=== PATIENT | male | born 1955 | race African-American/Black ===

== ENCOUNTER 2023-07-12 20:54 | Emergency (ER) | payer MEDICARE, SELFPAY ==
[2023-07-12] VITALS (21 sets, daily range): BP systolic 133–159; BP diastolic 75–120; PULSE 84–128; RESP 12–27; TEMP 36.4; O2SAT 95–100
[2023-07-12 21:29] LABS: Basophils Percent Auto 0.4 % (0.2-1.2); Eosinophils Percent Auto 0.1 % (0-4.4); Hematocrit 40.7 % (42.0-52.0); Immature Granulocyte Absolute 0.02 K/mm3 (0.00-0.031); Immature Granulocyte Percent A 0.2 % (0-0.5); Lymphocytes Absolute Auto 1.42 K/mm3 (0.9-3.2); Lymphocytes Percent Auto 15.7 % (18.3-44.2); Mean Corpuscular HGB Conc 34.4 g/dl (32-36); Mean Corpuscular Hemoglobin 31.2 pg (26-34); Mean Corpuscular Volume 90.6 fl (80-100); Mean Platelet Volume 10.3 fl (7.4-10.4); Monocytes Absolute Auto 0.5 K/mm3 (0.1-0.6); Monocytes Percent Auto 5.2 % (2.6-8.5); Neutrophils Absolute Auto 7.1 K/mm3 (1.3-6.7); Neutrophils Percent Auto 78.4 % (45.5-73.1); Platelet Count Result 160 k/mm3 (150-375); Red Blood Count 4.49 M/mm3 (4.6-6.20); Red Cell Distribution Width 13.5 % (11.5-14.5); White Blood Count 9.1 K/mm3 (4.5-10.0)
[2023-07-12 21:49] LABS: Alanine Aminotransferase 34 U/L (6-50); Albumin Level 5.3 g/dL (3.5-5.1); Alkaline Phosphatase 73 U/L (38-126); Anion Gap 20 mmol/L (4-12); Aspartate Amino Transferase 65 U/L (17-59); Bilirubin,Total 0.9 mg/dL (0.2-1.3); Blood Urea Nitrogen 5 mg/dL (9-20); Calcium 9.2 mg/dL (8.4-10.2); Carbon Dioxide 21 mmol/L (22-30); Chloride 99 mmol/L (98-107); Estimated CRCL calculation 75 ml/min; Estimated Glomerular Filt Rate > 60; Glucose 172 mg/dL (65-110); Lipase 110 U/L (23-300); Potassium 3.7 mmol/L (3.4-5.0); Sodium 140 mmol/L (137-145)
[2023-07-12] MEDS: SODIUM CHLORIDE 0.9% IV 1,000 ML 999 ML IV CONT (22:11)
[2023-07-12] MEDS: PANTOPRAZOLE SODIUM IV 40 MG VIAL IV PUSH (22:11)
--- NOTE | 2023-07-12 22:16 | ECG_ITS ---
SEE SCANNED COPY FOR CONFIRMED REPORT MTDD
--- NOTE | 2023-07-12 22:21 | ED.ABDPAIN ---
HPI - Abdominal Pain General Chief Complaint: Abdominal Pain Stated Complaint: epigastric pain Time Seen by Provider: 07/12/23 21:52 Source: patient Mode of arrival: ambulatory Limitations: no limitations History of Present Illness HPI narrative: This is a 67 year old male that presents to the ER for burning chest pain. Reports ongoing since yesterday. Reports he is an alcoholic. He started to experience burning pain the radiates from his throat into his chest and abdomen. Associated with nausea and vomiting. Denies fever, shortness of breath, hematemesis, or melena. Related Data Allergies Allergy/AdvReac Type Severity Reaction Status Date / Time No Known Allergies Allergy Unverified 07/12/23 21:14 Review of Systems Review of Systems: CONSTITUTIONAL: Denies fever CARDIOVASCULAR: Reports chest pain RESPIRATORY: Denies dyspnea. GASTROINTESTINAL: Reports abdominal pain, nausea, vomiting All systems reviewed & are unremarkable except as noted in HPI and below PMFSH Past Medical History Medical History (Updated 07/13/23 @ 02:30 by Inga Pineda PA-C) History of gastroesophageal reflux (GERD) History of hypertension Family History Family History (Updated 10/01/15 @ 23:19 by DOCTOR UNKNOWN) Father Family history of diabetes mellitus in first degree relative Sibling Family history of diabetes mellitus in first degree relative Social History Social History Smoking status: Never smoker Second hand tobacco smoke exposure: No Alcohol intake: current Exam Narrative: GENERAL: Well-appearing, well-nourished, and in no acute distress. HEAD: Normocephalic, atraumatic. ENT: Nares clear, no rhinorrhea or epistaxis. Mucous membranes moist. Oropharynx without tonsillar hypertrophy exudate or other lesions. CHEST: Clear to auscultation. No respiratory distress. No wheezes rales or rhonchi HEART: Regular rate and rhythm. No murmur heard. Normal peripheral pulses. ABDOMEN: Soft, nontender, nondistended, normal active bowel sounds. EXTREMITIES: Normal range of motion. No edema. SKIN: Warm, dry, no rash. NEURO: No focal deficits. Alert and oriented x3. PSYCH: Normal mood and affect Course Course Emergency Course: Patient updated on his workup. Resting comfortably. Agrees with plan of care Vital Signs Vital signs: Vital Signs Temperature 97.6 F 07/12/23 21:05 Pulse Rate 128 H 05/09/24 21:05 Respiratory Rate 20 07/12/23 21:05 Blood Pressure 150/101 H 07/12/23 21:05 Pulse Oximetry 97 07/12/23 21:05 Oxygen Delivery Room Air 07/12/23 21:05 Temperature 97.6 F 07/12/23 21:05 Pulse Rate 88 07/12/23 23:49 Respiratory Rate 23 H 07/12/23 23:49 Blood Pressure 133/75 07/12/23 23:49 Pulse Oximetry 99 07/12/23 23:49 Oxygen Delivery Room Air 07/12/23 21:05 MDM - Abdominal Pain MDM Narrative Medical decision making narrative: Patient presents the emergency department for burning epigastric/chest pain. He is afebrile and nontoxic appearing. Tachycardic upon arrival, this normalized with IV fluids. CBC without leukocytosis. Metabolic panel with some evidence of dehydration. Patient hydrated with IV fluids in the ED. Repeat metabolic panel is improved. UA with 11-20 white blood cells, patient is not having any urinary symptoms. This will be sent for culture. Patient reports relief with Protonix and Zofran. Tolerating p.o., no further vomiting in the ED. Patient was updated on his workup and agrees with plan of care. Will be started on Protonix daily. Given resource is to abstain from alcohol. He was given warnings to return to the ER Differential Diagnosis Differential diagnosis: Likely gastroenteritis and other (esophagitis, gastritis, GERD) Lab Data Attestation: I reviewed the patient's lab results. 07/12/23 21:24 07/13/23 02:38 Labs: Lab Results 07/12/23 07/12/23 07/13/23 Range/Units 21:24 23:23 02:38 WBC 9.1 (4.5-10.
[2023-07-12] MEDS: ONDANSETRON INJ 4 MG/2 ML VIAL IV PUSH (22:30)
[2023-07-12 22:51] LABS: Troponin I < 0.012 ng/mL (0.000-0.034)
[2023-07-12 23:35] LABS: Appearance Urine Clear (Clear); Bacteria Urine None Seen /hpf; Bilirubin Urine Negative (Negative); Blood Urine Negative (Negative); Color Urine Yellow (Yellow); Glucose Urine UA Negative (Negative); Ketones Urine 1+ mg/dL (Negative); Leukocyte Esterase Ur Trace LEU/UL (Negative); Nitrate Urine Negative (Negative); Non Pathogenic Casts 0-2; Protein Urine 2+ mg/dL (Negative); RBC Urine 0-2 /hpf (0-2); Specific Grav Ur 1.022 (1.001-1.035); Squamous Epithelial Cell Urine Occasional /hpf (Few); pH Urine 6.5 (5.0-9.0)
[2023-07-12 23:42] LABS: Add Urine Microscopic? YES
[2023-07-13] VITALS: PULSE 86; RESP 19; O2SAT 98
[2023-07-13 00:15] VITALS: PULSE 91; RESP 20; O2SAT 100
[2023-07-13 00:31] VITALS: O2SAT 96
[2023-07-13] MEDS: SODIUM CHLORIDE 0.9% IV 1,000 ML 999 ML IV CONT (00:50)
[2023-07-13 02:52] LABS: Anion Gap 13 mmol/L (4-12); Blood Urea Nitrogen 3 mg/dL (9-20); Calcium 7.8 mg/dL (8.4-10.2); Carbon Dioxide 21 mmol/L (22-30); Chloride 106 mmol/L (98-107); Estimated CRCL calculation 86 ml/min; Estimated Glomerular Filt Rate > 60; Glucose 105 mg/dL (65-110); Potassium 3.7 mmol/L (3.4-5.0); Sodium 140 mmol/L (137-145)
[2023-07-13 03:05] VITALS: BP 186/68; PULSE 86; RESP 16; O2SAT 98
== END 2023-07-13 03:05 | disposition home or self-care (01) ==
PROVIDERS: Emergency Medicine; Emergency Provider Physician Assistant
DX: K29.70 Gastritis, unspecified, without bleeding (principal); F10.10 Alcohol abuse, uncomplicated; R82.998 Other abnormal findings in urine; I10 Essential (primary) hypertension; K21.9 Gastro-esophageal reflux disease without esophagitis
CPT/HCPCS: 36415; 80048; 80053; 81001; 83690; 84484; 85025; 87086; 93005; 96361; 96374; 96375; 99284; C9113; J2405; J7030

== ENCOUNTER 2023-07-13 06:38 | Inpatient (IN) | payer MEDICARE, MEDICAID, SELFPAY ==
[2023-07-13] VITALS (25 sets, daily range): BP systolic 124–160; BP diastolic 64–88; PULSE 63–127; RESP 14–24; TEMP 36.3–36.6; O2SAT 95–99; BMI 20.9
--- NOTE | ~2023-07-13 | MR_ITS ---
EXAMINATION: MR brain/brain stem wo con DATE: 07/14/2023 14:09 INDICATION: seizure TECHNIQUE: Magnetic resonance imaging (MRI) of the brain and brainstem was performed without intraven ous contrast. Sequences included sagittal and axial T1-weighted SE, axial diffusion-weighted FS EPI A SSET, axial T2*-weighted GRE, axial T2-weighted FLAIR Propeller, and axial T2-weighted Propeller. Pos tcontrast axial and coronal T1-weighted SE was obtained. Apparent diffusion coefficient (ADC) maps we re created. COMPARISON: CT brain 07/13/2023 FINDINGS: No abnormal restricted diffusion to suggest acute ischemic infarct. No MRI evidence of hemorrhage or extra-axial collection. No suspicious foci of susceptibility to suggest prior intraparenchymal hemorr karmen. Severe confluent or patchy and confluent white matter hyperintensity, likely representing sever e small vessel ischemic disease. Mild generalized parenchymal volume loss. The basilar cisterns are p atent. Flow voids are preserved. Paranasal sinuses are within normal limits. Left phthisis bulbi. Yanna bes and orbital contents are otherwise within normal limits. IMPRESSION: Severe chronic white matter changes. No acute intracranial process. Reviewed, dictated and finalized at location K.
--- NOTE | ~2023-07-13 | CT_ITS ---
CT head without contrast Indication: Seizure Technique: Serial scans were obtained through the brain without the administration of contrast. Dose reduction technique was used on this scan by utilizing automated exposure control and iterative recon struction technique. The dose-length product (DLP) was 605.33 mGy-cm. Findings: There is no evidence of intracranial hemorrhage, mass lesion, or acute infarct. The ventri cles and subarachnoid spaces are dilated, consistent with mild atrophy. Low attenuation regions are seen within the periventricular white matter bilaterally, likely representing changes from chronic mi crovascular ischemic disease. There is no evidence of edema, mass effect or midline shift. The visu alized paranasal sinuses and mastoid air cells are clear. Impression: No intracranial hemorrhage, mass, or acute infarct. Atrophy and chronic white matter changes, as above. Reviewed, dictated and finalized at location . Impression: No intracranial hemorrhage, mass, or acute infarct. Atrophy and chronic white matter changes, as above.
--- NOTE | 2023-07-13 06:44 | PC.NURSE ---
This RN called to waiting room by a visitor stating something is wrong with that man patient found on the floor in front of his wheelchair having seizure like activity. Patient was lifted to stretcher by staff members and security. no injury noted. Patient was incont. of urine
--- NOTE | 2023-07-13 06:45 | ECG_ITS ---
SEE SCANNED COPY FOR CONFIRMED REPORT MTDD
[2023-07-13] MEDS: LORazepam INJ (*CRX) 2 MG/ML VIAL IV PUSH ×2 (06:48→10:32)
[2023-07-13 07:00] LABS: Basophils Absolute Auto 0.1 K/mm3 (0.0-0.1); Basophils Percent Auto 0.3 % (0.2-1.2); Hematocrit 41.4 % (42.0-52.0); Immature Granulocyte Absolute 0.07 K/mm3 (0.00-0.031); Immature Granulocyte Percent A 0.4 % (0-0.5); Lymphocytes Absolute Auto 1.68 K/mm3 (0.9-3.2); Lymphocytes Percent Auto 9.8 % (18.3-44.2); Mean Corpuscular HGB Conc 31.4 g/dl (32-36); Mean Corpuscular Hemoglobin 30.9 pg (26-34); Mean Corpuscular Volume 98.3 fl (80-100); Mean Platelet Volume 10.6 fl (7.4-10.4); Monocytes Absolute Auto 1.2 K/mm3 (0.1-0.6); Monocytes Percent Auto 7.1 % (2.6-8.5); Neutrophils Absolute Auto 14.1 K/mm3 (1.3-6.7); Neutrophils Percent Auto 82.4 % (45.5-73.1); Platelet Count Result 147 k/mm3 (150-375); Red Blood Count 4.21 M/mm3 (4.6-6.20); Red Cell Distribution Width 13.9 % (11.5-14.5); White Blood Count 17.1 K/mm3 (4.5-10.0)
[2023-07-13] MEDS: [UNRECOGNIZED DRUG - OTHER] IVPB (07:03)
[2023-07-13] MEDS: LEVETIRACETAM IVPB (07:03)
[2023-07-13 07:09] LABS: Ethanol < 10 mg/dL (<10)
[2023-07-13 07:10] LABS: Alanine Aminotransferase 70 U/L (6-50); Albumin Level 5.5 g/dL (3.5-5.1); Alkaline Phosphatase 76 U/L (38-126); Anion Gap 32 mmol/L (4-12); Aspartate Amino Transferase 86 U/L (17-59); Bilirubin,Total 1.3 mg/dL (0.2-1.3); Blood Urea Nitrogen 4 mg/dL (9-20); Calcium 9.5 mg/dL (8.4-10.2); Carbon Dioxide 10 mmol/L (22-30); Chloride 108 mmol/L (98-107); Estimated CRCL calculation 54 ml/min; Estimated Glomerular Filt Rate > 60; Glucose 201 mg/dL (65-110); Potassium 3.9 mmol/L (3.4-5.0); Sodium 150 mmol/L (137-145)
[2023-07-13 07:23] LABS: Lactic Acid Reflex 22.9 mmol/L (0.7-2.0)
[2023-07-13] MEDS: LACTATED RINGERS 1,000 ML 999 ML IV CONT (08:36)
--- NOTE | 2023-07-13 08:43 | ED.SEIZURE ---
HPI - Seizure General Chief Complaint: Seizure Stated Complaint: seizure Time Seen by Provider: 07/13/23 06:57 Limitations: altered mental status History of Present Illness HPI Narrative: HPI limited by patient's altered mental status This is a 67-year-old male, with history of alcohol abuse, previously seen in this emergency room yesterday evening for atypical chest pain, who returns to the emergency department after having a seizure. The patient was waiting in our waiting room for his ride, when he had a seizure. Patient was given 2 mg IV Ativan shortly after cessation of his seizure. Related Data Allergies Allergy/AdvReac Type Severity Reaction Status Date / Time No Known Allergies Allergy Unverified 07/12/23 21:14 Review of Systems Review of Systems: ROS unobtainable: Yes unobtainable due to mental status PMFSH Past Medical History Medical History Above knee amputation of right lower extremity History of gastroesophageal reflux (GERD) History of hypertension Family History Family History Father Family history of diabetes mellitus in first degree relative Sibling Family history of diabetes mellitus in first degree relative Social History Social History Smoking status: Never smoker Second hand tobacco smoke exposure: No Alcohol intake: current Drinks per week: 84 Substance use: unknown Substance use type: unknown Do You Feel Safe in your Home?: Yes Lack of Transportation: No Lack of Food: Never True Current Housing: Decline to Answer Concerned About Future Housing: Decline to Answer Difficulty Paying Gas/Electric Bills: Decline to Answer Difficulty Paying for Meds: Decline to Answer Currently Unemployed: Decline to Answer Education: Decline to Answer Difficulty w/ Childcare or Family Care: Decline to Answer Spiritual care concerns: No Exam Narrative: GENERAL: Well-developed, well-nourished, and in no acute distress. HEAD: Normocephalic, atraumatic. EYES: PERRLA and EOMI. Right pupil 3 mm and sluggishly reactive to light. Left cornea clouded ENT: Nares clear, no rhinorrhea or epistaxis. Mucous membranes moist. Oropharynx without tonsillar hypertrophy exudate or other lesions. CHEST: Clear to auscultation. No respiratory distress. No wheezes rales or rhonchi HEART: Tachycardic with regular rhythm. No murmur heard. Normal peripheral pulses. ABDOMEN: Soft, nontender, nondistended, normal active bowel sounds. EXTREMITIES: Normal range of motion. No edema. SKIN: Warm, dry, no rash. NEURO: Drowsy though wakes to tactile stimulus. Moving all 4 limbs spontaneously Course Course Emergency Course: 08:40 - On re-evaluation, the patient is now more easily arousable. He is oriented x3. He states he has had seizures related to alcohol withdrawal previously. He states he typically drinks around a 12 pack a day with his last drink yesterday evening. Chemistries demonstrated sodium of 150 with anion gap of 32, likely related to lactic acidosis of 22 (consistent with seizure). AST/ALT of 86/70. CT head not concerning for acute intracranial process. CBC demonstrated elevated white blood cell count of 17.1 with anemia and hemoglobin of 13.0 oral. Platelets 147. Alcohol level 0. CIWA of 4. I suspect the patient's seizures related to alcohol withdrawal. Will give phenobarb and discussed with hospitalist for admission. The patient is comfortable with the plan. 08:50 - Repeat lactic acid improving to 7. 09:30 - I discussed this patient with hospitalist, Dr. Pelaez who accepts admission IMU. 09:44 - I discussed the patient with neurologist, Dr. Diaz who agrees to consult and recommends MRI of the brain. Vital Signs Vital signs: Vital Signs Temperature 98 F 07/13/23 06:39 Pulse Rate 127 H 07/13/23 06:39 Respiratory Rate 18
[2023-07-13] MEDS: PHENobarbitaL sodium (*CRX) 65 MG/ML VIAL 130 MG IV PUSH (09:07)
[2023-07-13 09:56] LABS: Reflex Lactic Acid Yes or No Add Lactic
[2023-07-13 10:24] LABS: Lactic Acid 3.1 mmol/L (0.7-2.0)
--- NOTE | 2023-07-13 15:06 | WPDNEUROPN ---
Subjective Date/time seen: 07/13/23 15:06 Objective Data Vital Signs Vital Signs: Vital Signs - 24 hr 07/13/23 06:39 07/13/23 06:49 07/13/23 06:49 Temperature 36.6 C Pulse Rate 127 H 125 H Respiratory Rate 18 Blood Pressure 160/78 H Pulse Oximetry 97 95 Oxygen Delivery Room Air 07/13/23 06:49 07/13/23 06:51 07/13/23 07:19 Temperature Pulse Rate 123 H 116 H Respiratory Rate 20 19 Blood Pressure 150/80 H Pulse Oximetry 95 95 96 Oxygen Delivery Room Air 07/13/23 07:21 07/13/23 07:30 07/13/23 07:31 Temperature Pulse Rate 114 H 116 H 112 H Respiratory Rate 20 20 18 Blood Pressure 143/86 H 149/88 H Pulse Oximetry 96 95 96 Oxygen Delivery 07/13/23 07:45 07/13/23 07:46 07/13/23 08:01 Temperature Pulse Rate 119 H 108 H Respiratory Rate 18 17 Blood Pressure 141/81 H 143/87 H Pulse Oximetry Oxygen Delivery 07/13/23 08:02 07/13/23 08:17 07/13/23 08:30 Temperature Pulse Rate 106 H 100 97 Respiratory Rate 24 H 16 14 Blood Pressure 135/84 Pulse Oximetry 97 98 Oxygen Delivery 07/13/23 08:45 07/13/23 10:25 07/13/23 10:31 Temperature Pulse Rate 94 89 89 Respiratory Rate 15 20 19 Blood Pressure 148/86 H Pulse Oximetry 97 Oxygen Delivery 07/13/23 11:47 07/13/23 14:02 07/13/23 14:56 Temperature Pulse Rate 83 81 80 Respiratory Rate 14 18 16 Blood Pressure 129/73 124/64 125/72 Pulse Oximetry 98 96 97 Oxygen Delivery 07/13/23 15:01 Temperature Pulse Rate 80 Respiratory Rate 19 Blood Pressure 130/74 Pulse Oximetry 96 Oxygen Delivery Intake/Output Intake/Output: Intake & Output 07/10/23 07/11/23 07/12/23 07/13/23 23:59 23:59 23:59 23:59 Intake Total 1200 Balance 1200 Meds/Results Medications: Active Medications Generic Name Dose Route Start Last Admin Trade Name Freq PRN Reason Stop Dose Admin Lorazepam 2 mg 07/13/23 09:31 05/10/24 10:32 Lorazepam Inj (*Crx) 2 Mg/Ml Vial IV PUSH 2 mg Q2H PRN Administration CIWA > 15 Ondansetron HCl 4 mg 07/13/23 09:31 Ondansetron Inj 4 Mg/2 Ml Vial IV PUSH Q6H PRN Nausea And Vomiting Radiology Results: ITS Impressions Head CT 07/13/23 07:26 Impression: No intracranial hemorrhage, mass, or acute infarct. Atrophy and chronic white matter changes, as above. Labs Labs: Laboratory Results - last 24 hr 07/13/23 07/13/23 07/13/23 06:53 08:32 10:06 WBC 17.1 H RBC 4.21 L Hgb 13.0 L Hct 41.4 L MCV 98.3 D MCH 30.9 MCHC 31.4 L RDW 13.9 Plt Count 147 L MPV 10.6 H Immature Gran % (Auto) 0.4 Neut % (Auto) 82.4 H Lymph % (Auto) 9.8 L Calvert % (Auto) 7.1 Eos % (Auto) 0.0 Baso % (Auto) 0.3 Lymph # (Auto) 1.68 Calvert # (Auto) 1.2 H Eos # (Auto) 0.0 Baso # (Auto) 0.1 Abs Immat Gran (auto) 0.07 H Absolute Neuts (auto) 14.1 H Absolute Nucleated RBC 0.000 Nucleated RBC % 0.0 Sodium 150 H Potassium 3.9 Chloride 108 H Carbon Dioxide 10 L Anion Gap 32 H BUN 4 L Creatinine 1.00 Estim Creat Clear Calc 54 Estimated GFR > 60 Glucose 201 H Lactic Acid 22.9 H* 7.0 H* 3.1 H Calcium 9.5 Total Bilirubin 1.3 AST 86 H ALT 70 H Alkaline Phosphatase 76 Total Protein 9.0 H Albumin 5.5 H Ethyl Alcohol < 10
--- NOTE | 2023-07-13 15:19 | ADMGEN ---
This patient, Dejon Henry, was admitted to IMU Room 203-01 at 1519. Patient/family oriented to hospital policies and general routines including ID bracelet, bed and alarms, visiting hours, pain management, procedures, bathroom and other care routines, personal items, smoking policy, room service/diet, and visiting hours. Information on how to activate the Rapid Response Team has been discussed. Patient/Family are encouraged to report perceived risks to care and to ask questions if they do not understand what they are told or what they should do.
[2023-07-13 17:54] LABS: Glucose Point of Care 91 mg/dl (65-105)
--- NOTE | 2023-07-13 18:02 | WPDNEURCNPN ---
Assessment and Plan Assessment and plan (1) Alcohol abuse: Code(s): F10.10 - Alcohol abuse, uncomplicated Status: Acute (2) Seizure: Code(s): R56.9 - Unspecified convulsions Status: Acute Plan Mr. Henry is a 67 year old male with a history of alcoholism presenting due to seizure. Unclear if this occurred in the setting of alcohol withdrawal. In the ER he told the staff that he drinks daily, and his last drink was yesterday. However he tells me that his last alcoholic beverage was 6 months ago, which would not be indicative of alcohol withdrawal seizure. There is also some discrepancy in whether he has had a prior seizure or not. Patient was not able to sat definitively, but ER note he told them that he has had alcohol withdrawal seizures in the past. - Will proceed with seizure-work up including MRI brain. Routine EEG will have to be done on Sunday if he is still admitted - [facility] protocol - Will need more collateral information from family regarding his drinking habits and possible prior seizure - Patient told me that he does drive? Given this seizure, I did tell him that he cannot drive until at least six months of seizure freedom - Decision for anti-seizure medication will depend on testing results and additional patient history Consult date: 07/13/23 Reason for consult: Seizure HPI: Dejon Henry is a 67 year old male with a history of HTN, chronic alcohol abuse presenting due to seizure. Patient was in the [facility] ED last night for chest/epigastric pain, which was ultimately thought to be related to reflux. He was discharged from the ER after negative work-up and while waiting for a ride, he had a seizure. Description of seizure is unclear, was not witnessed by the ER physician. He received Ativan after the seizure stopped on it's own. Per ER note, patient has had seizures related to alcohol withdrawal previously, however there is no documentation of this in our system, and patient is not able to confirm to me. He tells me he has had previous 'black out spells' related to his vision, but could not definitely tell me if he's had seizures. He has RLE AKA and L eye blindness. He told me that he is able to drive. He told me that his last alcoholic beverage for 6 months ago. However, the ER note says that he drinks about a 12 pack of beer per day, and his last drink was yesterday evening. His labs were significant for lactic acidosis of 22 as well as elevated liver enzymes. CT head was negative for acute process. Alcohol level was negative. No UDS available currently. Patient reports that he lives a lone. Review of Systems Review of Systems: ROS unobtainable: Yes unobtainable due to mental status PMFSH Past Medical History Medical History Above knee amputation of right lower extremity History of gastroesophageal reflux (GERD) History of hypertension Family History Family History Father Family history of diabetes mellitus in first degree relative Sibling Family history of diabetes mellitus in first degree relative Social History Social History Smoking status: Never smoker Second hand tobacco smoke exposure: No Alcohol intake: current Drinks per week: 84 Substance use: unknown Substance use type: unknown Do You Feel Safe in your Home?: Yes Lack of Transportation: No Lack of Food: Never True Current Housing: Decline to Answer Concerned About Future Housing: Decline to Answer Difficulty Paying Gas/Electric Bills: Decline to Answer Difficulty Paying for Meds: Decline to Answer Currently Unemployed: Decline to Answer Education: Decline to Answer Difficulty w/ Childcare or Family Care: Decline to Answer Spiritual care concerns: No Meds Home Medications and Allergies Allergies Allergy/AdvReac Type Severity Reactio
[2023-07-13 21:04] LABS: Amphetamine Screen Urine Negative (Negative); Barbiturate Screen Urine Negative (Negative); Benzodiazepines Screen Urine Negative (Negative); Cannabinoid Screen Urine Negative (Negative); Cocaine Screen Urine Negative (Negative); Methadone Screen Urine Negative (Negative); Opiate Screen Urine Negative (Negative); Phencyclidine Screen Urine Negative (Negative)
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
[2023-07-13 22:14] LABS: Alanine Aminotransferase 37 U/L (6-50); Albumin Level 4.5 g/dL (3.5-5.1); Alkaline Phosphatase 58 U/L (38-126); Anion Gap 10 mmol/L (4-12); Aspartate Amino Transferase 95 U/L (17-59); Bilirubin,Total 1.8 mg/dL (0.2-1.3); Blood Urea Nitrogen 5 mg/dL (9-20); Calcium 8.4 mg/dL (8.4-10.2); Carbon Dioxide 23 mmol/L (22-30); Chloride 102 mmol/L (98-107); Estimated CRCL calculation 61 ml/min; Estimated Glomerular Filt Rate > 60; Glucose 81 mg/dL (65-110); Potassium 3.6 mmol/L (3.4-5.0); Sodium 135 mmol/L (137-145)
[2023-07-13 22:18] LABS: Creatine Kinase 1084 U/L (55-170)
[2023-07-14] VITALS (17 sets, daily range): BP systolic 123–156; BP diastolic 55–78; PULSE 55–88; RESP 16–18; TEMP 35.8–36.9; O2SAT 95–100
[2023-07-14 00:32] LABS: Glucose Point of Care 73 mg/dl (65-105)
[2023-07-14 03:42] LABS: Total Protein Urine Random 56 mg/dL; Ur Ttl Prot Creatinine Ratio 0.29 mg/mg (0-0.20)
[2023-07-14 04:00] LABS: Sodium Urine Random 166 meq/L
[2023-07-14 04:42] LABS: Basophils Percent Auto 0.5 % (0.2-1.2); Eosinophils Percent Auto 0.5 % (0-4.4); Hematocrit 35.9 % (42.0-52.0); Hemoglobin 11.6 g/dL (14.0-18.0); Immature Granulocyte Absolute 0.02 K/mm3 (0.00-0.031); Immature Granulocyte Percent A 0.2 % (0-0.5); Immature Platelet Fraction Pct 8.2 % (0.9-11.2); Lymphocytes Absolute Auto 1.26 K/mm3 (0.9-3.2); Lymphocytes Percent Auto 15.7 % (18.3-44.2); Mean Corpuscular HGB Conc 32.3 g/dl (32-36); Mean Corpuscular Hemoglobin 30.6 pg (26-34); Mean Corpuscular Volume 94.7 fl (80-100); Mean Platelet Volume 10.7 fl (7.4-10.4); Monocytes Absolute Auto 0.6 K/mm3 (0.1-0.6); Monocytes Percent Auto 7.9 % (2.6-8.5); Neutrophils Percent Auto 75.2 % (45.5-73.1); Platelet Count Result 109 k/mm3 (150-375); Red Blood Count 3.79 M/mm3 (4.6-6.20); Red Cell Distribution Width 13.3 % (11.5-14.5)
[2023-07-14 04:57] LABS: Alanine Aminotransferase 34 U/L (6-50); Albumin Level 4.3 g/dL (3.5-5.1); Alkaline Phosphatase 60 U/L (38-126); Anion Gap 12 mmol/L (4-12); Aspartate Amino Transferase 80 U/L (17-59); Bilirubin,Total 1.9 mg/dL (0.2-1.3); Blood Urea Nitrogen 6 mg/dL (9-20); Calcium 8.2 mg/dL (8.4-10.2); Carbon Dioxide 20 mmol/L (22-30); Chloride 102 mmol/L (98-107); Estimated CRCL calculation 61 ml/min; Estimated Glomerular Filt Rate > 60; Glucose 73 mg/dL (65-110); Potassium 3.2 mmol/L (3.4-5.0); Sodium 134 mmol/L (137-145)
[2023-07-14] MEDS: PANTOPRAZOLE SODIUM IV 40 MG VIAL IV PUSH (09:24)
[2023-07-14 11:43] LABS: Glucose Point of Care 122 mg/dl (65-105)
--- NOTE | 2023-07-14 13:38 | PC.NURSE ---
Off floor to MRI
--- NOTE | 2023-07-14 14:10 | PC.NURSE ---
Back from MRI without issue.
--- NOTE | 2023-07-14 15:46 | PC.NURSE ---
Patient out of bed again. Bed alarm activated. Reviewed fall precautions again with patient. Patient alert and oriented x 4. No neurological deficits noted.
--- NOTE | 2023-07-14 16:31 | PM.IMPN ---
Progress Note: A&P Assessment and Plan (1) Seizure: Code(s): R56.9 - Unspecified convulsions Status: Acute Assessment and Plan: 07/13/23: - CT head: 1. No intracranial hemorrhage, mass, or acute infarct. 2. Atrophy and chronic white matter changes, as above. - Neuro consulted, Joe VYAS provided the following recommendations: MRI EEG [employer] protocol obtain collateral information from family to clarify history/ETOH habits educated that he cannot drive until he is seizure-free for 6 months -epileptic medications dependent on further workup and collateral information from family - seizure precautions - CIWA assessments and protocol - trend labs, repeating CMP this evening - WBC 17.1, 9.1 late last night. likely reactive to seizure. 07/14/23: Neurology following MRI results pending Continue CIWA and seizure precautions Plan for EGD on Sunday if he still inpatient otherwise can follow-up outpatient for EEG Continue lorazepam per CIWA for seizure prevention (2) Alcohol abuse: Code(s): F10.10 - Alcohol abuse, uncomplicated Status: Acute Assessment and Plan: 07/13/23: - daily ETOH use: 12 pack of beer daily - last drink: 07/05, approximately 1 week ago - CIWA protocol in place Ativan PRN seizure precautions neurochecks Q2H glucose Q6H - care coordination consulted for acute rehab services - antiemetics PRN - readiness to quit: Yes - the patient is denying history of withdrawal seizures, however has gone through withdrawal but experience nausea, vomiting, diaphoresis, and tremors. Awaiting collateral from family. 07/14/23: Continue CIWA protocol Patient has tremors (3) Hypernatremia: Code(s): E87.0 - Hyperosmolality and hypernatremia Status: Acute Assessment and Plan: 07/13/23: - Na 140 x2 during chest pain workup, repeat after seizure 150 -> 135 - urine osmolality, serum osmolality, protein to creatinine ratio, urine creatinine, urine sodium - trend renal function and electrolytes 07/14/23: Sodium 134 Patient had 1 lab value that was 150, otherwise low to normal (4) HTN (hypertension): Code(s): I10 - Essential (primary) hypertension Status: Acute Assessment and Plan: 07/13/23 - chronic, currently 135/74 - not currently on medications, reviewed external med rec - monitor 07/14/23: Blood pressures ranging 123/55 to 146/76 Continue to monitor (5) GERD (gastroesophageal reflux disease): Code(s): K21.9 - Gastro-esophageal reflux disease without esophagitis Status: Acute Assessment and Plan: 07/14/23: Continue Protonix b.i.d. Time Spent With Patient Time with patient: 25 - 35 minutes Subjective Date/time seen: 07/14/23 16:31 Interval history: 07/13/23: 67 y/o M presents here with seizure with PMH of alcoholism, right AKA, GERD, and HTN. Patient was seen last night in the emergency department for burning chest pain that had been ongoing since yesterday.? Described the pain as burning with radiation to his throat into his chest and abdomen.? Pain accompanied by nausea and vomiting.? Patient was initially tachycardic, normalized with IV fluids.? Lab work showed no anemia, no leukocytosis, with some evidence of dehydration.? UA sent for culture given presence of wbc's.? Patient reported improvement with Protonix and Zofran and was discharged with resources for abstaining from alcohol as well as a prescription for Protonix daily.? While patient was waiting for a ride to come pick him up he had a seizure while in the waiting room.? Seizure self aborted, was given 2 mg of Ativan, and initially postictal.? Later reassessment patient was A&O x3 and reported previous history of seizures related to alcohol withdrawal.? States that he drinks a 12 pack of beer per day.? Last drink was yesterday, 07/11, at XX o'clock.? Patient admitted for possible alcohol withdrawal and seizure workup.? Per chart review, neuro discussed
[2023-07-14 18:12] LABS: Glucose Point of Care 149 mg/dl (65-105)
--- NOTE | 2023-07-14 20:54 | PC.NURSE ---
07/14/23 at 2024-Bed alarm alarming and this RN went to assess. [employer] employee and another RN also in Pt's room upon my arrival. Pt found out of bed, sitting on the floor. Pt states that he did not fall out of bed and he wanted to lower himself onto the floor so the alarm would not go off again. Pt reports that he did not hit his head and no visible injuries noted. Pt assisted x2 back to the bed. Pt remains angry, restless, and combative. Trying to pull off gown and heart monitor. Pt stating that he wants to go back to his home and get out of this bed. Pt is refusing to answer orientation questions at this time. Pt instructed/re-educated again that he remains on bedrest with seizure precautions and has orders to remain in the bed. Pt is refusing education. Charge nurse, Ashlyn Vergara, Bottle And Glass Inspector, Yasmin Jimenez, WON, and Estelita Herrera, ALAYNA notified of Pt's fall, current mental status, and agitation. No orders received at this time. Alfreda MOORE pulled to sit in Pt's room.
[2023-07-14] MEDS: PANTOPRAZOLE 40 MG TABLET PO (21:08)
[2023-07-15] VITALS (15 sets, daily range): BP systolic 136–159; BP diastolic 78–99; PULSE 60–105; RESP 18–21; TEMP 36.2–36.7; O2SAT 98–100
[2023-07-15 00:17] LABS: Glucose Point of Care 132 mg/dl (65-105)
[2023-07-15 06:06] LABS: Glucose Point of Care 119 mg/dl (65-105)
[2023-07-15 08:38] LABS: Hematocrit 39.4 % (42.0-52.0); Hemoglobin 13.2 g/dL (14.0-18.0); Immature Platelet Fraction Pct 9.2 % (0.9-11.2); Mean Corpuscular HGB Conc 33.5 g/dl (32-36); Mean Corpuscular Hemoglobin 31.1 pg (26-34); Mean Corpuscular Volume 92.7 fl (80-100); Mean Platelet Volume 11.4 fl (7.4-10.4); Platelet Count Result 104 k/mm3 (150-375); Red Blood Count 4.25 M/mm3 (4.6-6.20); White Blood Count 6.7 K/mm3 (4.5-10.0)
[2023-07-15 08:45] LABS: Alanine Aminotransferase 34 U/L (6-50); Albumin Level 4.8 g/dL (3.5-5.1); Alkaline Phosphatase 68 U/L (38-126); Anion Gap 11 mmol/L (4-12); Aspartate Amino Transferase 69 U/L (17-59); Bilirubin,Total 1.7 mg/dL (0.2-1.3); Blood Urea Nitrogen 9 mg/dL (9-20); Carbon Dioxide 24 mmol/L (22-30); Chloride 99 mmol/L (98-107); Estimated CRCL calculation 61 ml/min; Estimated Glomerular Filt Rate > 60; Glucose 135 mg/dL (65-110); Magnesium 1.8 mg/dL (1.6-2.3); Potassium 2.7 mmol/L (3.4-5.0); Sodium 134 mmol/L (137-145)
[2023-07-15] MEDS: PANTOPRAZOLE 40 MG TABLET PO ×2 (09:28→20:34)
[2023-07-15] MEDS: POTASSIUM CHLORIDE 20 MEQ ER TABLET PO (11:04)
[2023-07-15] MEDS: POTASSIUM CHLORIDE INJ 40 MEQ in SODIUM CHLORIDE 0.9% IV 500 ML 130 MEQ IVPB (11:04)
[2023-07-15 11:07] LABS: Glucose Point of Care 176 mg/dl (65-105)
--- NOTE | 2023-07-15 11:58 | PM.IMPN ---
Progress Note: A&P Assessment and Plan (1) Seizure: Code(s): R56.9 - Unspecified convulsions Status: Acute Assessment and Plan: 07/13/23: - CT head: 1. No intracranial hemorrhage, mass, or acute infarct. 2. Atrophy and chronic white matter changes, as above. - Neuro consulted, Joe VYAS provided the following recommendations: MRI EEG [facility] protocol obtain collateral information from family to clarify history/ETOH habits educated that he cannot drive until he is seizure-free for 6 months -epileptic medications dependent on further workup and collateral information from family - seizure precautions - CIWA assessments and protocol - trend labs, repeating CMP this evening - WBC 17.1, 9.1 late last night. likely reactive to seizure. 07/14/23: Neurology following MRI results pending Continue CIWA and seizure precautions Plan for EGD on Sunday if he still inpatient otherwise can follow-up outpatient for EEG Continue lorazepam per CIWA for seizure prevention 07/15/23: MRI was negative for stroke. No contrast was used but no gadolinium was utilized CIWA was 2--no withdraw symptoms noted on exam Pt states he has not had alcohol in 1-2 months EEG planned for tomorrow since pt will be here (2) Hypokalemia: Code(s): E87.6 - Hypokalemia Status: Acute Assessment and Plan: Noted on today's labs -will do 40 mEq IV in 20 oral - will repeat labs in the morning -continue to monitor on telemetry until out of critical range -could be due to recent diarrhea (3) Alcohol abuse: Code(s): F10.10 - Alcohol abuse, uncomplicated Status: Acute Assessment and Plan: 07/13/23: - daily ETOH use: 12 pack of beer daily - last drink: 07/05, approximately 1 week ago - CIWA protocol in place Ativan PRN seizure precautions neurochecks Q2H glucose Q6H - care coordination consulted for acute rehab services - antiemetics PRN - readiness to quit: Yes - the patient is denying history of withdrawal seizures, however has gone through withdrawal but experience nausea, vomiting, diaphoresis, and tremors. Awaiting collateral from family. 07/15/23: No exam findings consistent with withdrawal at this time. Last CIWA 2 Patient is adamant that he has not drink alcohol and at least a month but has given various answers to other people Continue to monitor (4) Hypernatremia: Code(s): E87.0 - Hyperosmolality and hypernatremia Status: Acute Assessment and Plan: 07/13/23: - Na 140 x2 during chest pain workup, repeat after seizure 150 -> 135 - urine osmolality, serum osmolality, protein to creatinine ratio, urine creatinine, urine sodium - trend renal function and electrolytes 07/15/23: Sodium 134 Patient's sodium was 150 on admission which dropped to 135 fairly quickly. MRI day after just revealed chronic WM changes Monitor closely. Avoid large changes in sodium, it is now stable (5) HTN (hypertension): Code(s): I10 - Essential (primary) hypertension Status: Acute Assessment and Plan: 07/13/23 - chronic, currently 135/74 - not currently on medications, reviewed external med rec - monitor 07/14/23: Blood pressures ranging 123/55 to 146/76 Continue to monitor 07/15/23 -136/87 today -not on any medciations as of now (6) GERD (gastroesophageal reflux disease): Code(s): K21.9 - Gastro-esophageal reflux disease without esophagitis Status: Acute Assessment and Plan: 07/14/23: Continue Protonix b.i.d. (7) Diarrhea: Code(s): R19.7 - Diarrhea, unspecified Status: Acute Assessment and Plan: Diarrhea noted yesterday (5BMs) and 7 so far today -WBC WNL, no cdiff suspected at this time -imodium x 1 -monitor Plan Will keep overnight due to electrolyte changes, once potassium has normalized and EEG is done he will likely be able to d/c Time Spent With Patient Time with patient: 25 - 35 minutes Sub
--- NOTE | 2023-07-15 15:32 | PCPTNOTE ---
attempted PT evaluation: pt has his prosthesis but does not have the liner sock that holds his leg in position; his visitor will get it and bring later today. He did not want to walk or get OOB without his prosthesis.
--- NOTE | 2023-07-15 16:16 | PC.NURSE ---
This patient, Dejon Henry, was received from [facility] on 07/15/23 at 1616. Patient/family oriented to unit policies and routines
[2023-07-15 19:05] LABS: Glucose Point of Care 135 mg/dl (65-105)
--- NOTE | 2023-07-15 20:00 | PC.NURSE ---
On arrival of my shift at 1900 pts twin was at bedside and he was friendly and calm. After his brother left he became very aggressive and angry. He was mad he was in the hospital and stated he doesn't like people telling him what to do. He moves very quickly and stood up out of bed on his one leg and hopped to the bathroom. We were able to get him to go back to bed. Sometimes he's resting comfortably and other times he has outbursts because he's also angry about the bed alarm. He can be very aggressive and belligerent towards staff. At approx 2325 his bed alarm went off again. Before we could get to the room pt had put himself on the floor looking for his remote. When I told him he couldn't do that that he needed to get back in bed. He jumped up, unassisted on his one leg and put himself back to bed. He did not want any assistance stating he could do it himself.
[2023-07-15] MEDS: LOPERAMIDE HCL 2 MG CAPSULE PO (20:34)
[2023-07-15 20:47] LABS: Anion Gap 12 mmol/L (4-12); Blood Urea Nitrogen 10 mg/dL (9-20); Calcium 9.4 mg/dL (8.4-10.2); Carbon Dioxide 23 mmol/L (22-30); Chloride 104 mmol/L (98-107); Estimated CRCL calculation 61 ml/min; Estimated Glomerular Filt Rate > 60; Glucose 127 mg/dL (65-110); Magnesium 1.6 mg/dL (1.6-2.3); Potassium 3.9 mmol/L (3.4-5.0); Sodium 139 mmol/L (137-145)
--- NOTE | 2023-07-15 21:58 | PC.NURSE ---
Pt is refusing telemetry. I educated him on why he needed it he still refused. Will try again at a later time to get him to put it back on.
[2023-07-16 05:46] LABS: Basophils Percent Auto 0.6 % (0.2-1.2); Eosinophils Absolute Auto 0.1 K/mm3 (0-0.3); Eosinophils Percent Auto 2.5 % (0-4.4); Hematocrit 36.3 % (42.0-52.0); Hemoglobin 12.4 g/dL (14.0-18.0); Immature Granulocyte Absolute 0.02 K/mm3 (0.00-0.031); Immature Granulocyte Percent A 0.4 % (0-0.5); Immature Platelet Fraction Pct 8.6 % (0.9-11.2); Lymphocytes Absolute Auto 1.31 K/mm3 (0.9-3.2); Lymphocytes Percent Auto 24.8 % (18.3-44.2); Mean Corpuscular HGB Conc 34.2 g/dl (32-36); Mean Corpuscular Hemoglobin 31.1 pg (26-34); Mean Platelet Volume 11.1 fl (7.4-10.4); Monocytes Absolute Auto 0.8 K/mm3 (0.1-0.6); Monocytes Percent Auto 14.4 % (2.6-8.5); Neutrophils Percent Auto 57.3 % (45.5-73.1); Platelet Count Result 96 k/mm3 (150-375); Red Blood Count 3.99 M/mm3 (4.6-6.20); Red Cell Distribution Width 12.7 % (11.5-14.5); White Blood Count 5.3 K/mm3 (4.5-10.0)
[2023-07-16 05:53] LABS: Anion Gap 9 mmol/L (4-12); Blood Urea Nitrogen 6 mg/dL (9-20); Calcium 8.6 mg/dL (8.4-10.2); Carbon Dioxide 24 mmol/L (22-30); Chloride 101 mmol/L (98-107); Estimated CRCL calculation 69 ml/min; Estimated Glomerular Filt Rate > 60; Glucose 106 mg/dL (65-110); Potassium 2.9 mmol/L (3.4-5.0); Sodium 134 mmol/L (137-145)
[2023-07-16 06:00] VITALS: BP 154/74; PULSE 59; RESP 21; TEMP 36.1; O2SAT 100
--- NOTE | 2023-07-16 06:14 | PC.NURSE ---
Pt continues to refuse telemetry. He has also been peeing off the side of his bed cause he thinks its funny.
--- NOTE | 2023-07-16 06:28 | PC.NURSE ---
K+ was 2.9. Made Dr. Rico aware she ordered 40K+ POx1
[2023-07-16] MEDS: POTASSIUM CHLORIDE 20 MEQ ER TABLET 40 MEQ PO ×2 (06:37→09:30)
[2023-07-16 06:48] LABS: Glucose Point of Care 141 mg/dl (65-105)
[2023-07-16] MEDS: PANTOPRAZOLE 40 MG TABLET PO ×2 (08:52→20:34)
--- NOTE | 2023-07-16 09:11 | PM.IMPN ---
Progress Note: A&P Assessment and Plan (1) Seizure: Code(s): R56.9 - Unspecified convulsions Status: Acute Assessment and Plan: 07/13/23: - CT head: 1. No intracranial hemorrhage, mass, or acute infarct. 2. Atrophy and chronic white matter changes, as above. - Neuro consulted, Joe VYAS provided the following recommendations: MRI EEG CIWA protocol obtain collateral information from family to clarify history/ETOH habits educated that he cannot drive until he is seizure-free for 6 months -epileptic medications dependent on further workup and collateral information from family - seizure precautions - CIWA assessments and protocol - trend labs, repeating CMP this evening - WBC 17.1, 9.1 late last night. likely reactive to seizure. 07/14/23: Neurology following MRI results pending Continue CIWA and seizure precautions Plan for EGD on Sunday if he still inpatient otherwise can follow-up outpatient for EEG Continue lorazepam per CIWA for seizure prevention 07/15/23: MRI was negative for stroke. No contrast was used but no gadolinium was utilized CIWA was 2--no withdraw symptoms noted on exam Pt states he has not had alcohol in 1-2 months EEG planned for tomorrow since pt will be here 07/16/23: EEG today Neurology following [facility]al Sitter at the bedside (2) Hypokalemia: Code(s): E87.6 - Hypokalemia Status: Acute Assessment and Plan: 07/15/23: Noted on today's labs -will do 40 mEq IV in 20 oral - will repeat labs in the morning -continue to monitor on telemetry until out of critical range -could be due to recent diarrhea 07/16/23: K+ 2.9 today 60 meq KCL given Continue to trend (3) Alcohol abuse: Code(s): F10.10 - Alcohol abuse, uncomplicated Status: Acute Assessment and Plan: 07/13/23: - daily ETOH use: 12 pack of beer daily - last drink: 07/05, approximately 1 week ago - CIWA protocol in place Ativan PRN seizure precautions neurochecks Q2H glucose Q6H - care coordination consulted for acute rehab services - antiemetics PRN - readiness to quit: Yes - the patient is denying history of withdrawal seizures, however has gone through withdrawal but experience nausea, vomiting, diaphoresis, and tremors. Awaiting collateral from family. 07/15/23: No exam findings consistent with withdrawal at this time. Last CIWA 2 Patient is adamant that he has not drink alcohol and at least a month but has given various answers to other people Continue to monitor 07/16/23: No change to current treatment plan (4) Hypernatremia: Code(s): E87.0 - Hyperosmolality and hypernatremia Status: Acute Assessment and Plan: 07/13/23: - Na 140 x2 during chest pain workup, repeat after seizure 150 -> 135 - urine osmolality, serum osmolality, protein to creatinine ratio, urine creatinine, urine sodium - trend renal function and electrolytes 07/15/23: Sodium 134 Patient's sodium was 150 on admission which dropped to 135 fairly quickly. MRI day after just revealed chronic WM changes Monitor closely. Avoid large changes in sodium, it is now stable 07/16/23: No change, Na+ 134 (5) HTN (hypertension): Code(s): I10 - Essential (primary) hypertension Status: Acute Assessment and Plan: 07/13/23 - chronic, currently 135/74 - not currently on medications, reviewed external med rec - monitor 07/14/23: Blood pressures ranging 123/55 to 146/76 Continue to monitor 07/15/23 -136/87 today -not on any medciations as of now 07/16/23: B/P ranging 148/99-159/79 Start amlodipine 5 mg tab daily (6) GERD (gastroesophageal reflux disease): Code(s): K21.9 - Gastro-esophageal reflux disease without esophagitis Status: Acute Assessment and Plan: 07/14/23: Continue Protonix b.i.d. 07/15/23: No change to current treatment plan (7) Diarrhea: Code(s): R19.7 - Diarrhea, unspecified
[2023-07-16] MEDS: amLODIPine BESYLATE 5 MG TABLET PO (09:30)
[2023-07-16 13:33] LABS: Osmolality, Urine 727 mOsm/kg (50-1200)
[2023-07-16 14:00] VITALS: BP 121/82; PULSE 74; RESP 19; TEMP 37.1; O2SAT 100
[2023-07-16] MEDS: LOPERAMIDE HCL 2 MG CAPSULE PO (14:25)
[2023-07-16] MEDS: POTASSIUM CHLORIDE 20 MEQ ER TABLET PO (14:25)
--- NOTE | 2023-07-16 18:00 | WPDNEUROLOGY ---
Neurology EEG Report General Information Date of Study: 07/16/23 TEST Electroencephalogram DIAGNOSIS seizure disorder, alcohol withdrawal syndrome CONDITION OF RECORDING Bedside according EEG NUMBER [id number] CLINICAL HISTORY History of seizures versus alcohol withdrawal seizures EEG DESCRIPTION This is a 21 channel recording done by the patient's bedside using 10-20 system electrode placement. During wakefulness the background activity consists of posterior dominant rhythm in alpha range at approximately 9 hertz with an amplitude of 15-30 microvolts. Anteriorly low amplitude mixed frequency activity was seen. Hyperventilation or photic stimulation were not performed. Superimposed muscle tension and beta activity were also noted at times. Patient did not progress to stage 2 sleep. IMPRESSION This is a normal EEG obtained during awake state.
[2023-07-16 19:00] VITALS: BP 122/78; PULSE 69; RESP 16; TEMP 37.2; O2SAT 100
[2023-07-17 06:00] VITALS: BP 122/88; PULSE 69; RESP 18; TEMP 37; O2SAT 100
[2023-07-17] MEDS: PANTOPRAZOLE 40 MG TABLET PO (09:14)
[2023-07-17] MEDS: amLODIPine BESYLATE 5 MG TABLET PO (09:14)
--- NOTE | 2023-07-17 09:59 | PM.IMPN ---
Progress Note: A&P Assessment and Plan (1) Seizure: Code(s): R56.9 - Unspecified convulsions Status: Acute (2) Alcohol withdrawal seizure: Qualifiers: Complication of substance-induced condition: with unspecified complication Qualified Code(s): F10.939 - Alcohol use, unspecified with withdrawal, unspecified; R56.9 - Unspecified convulsions Code(s): F10.939 - Alcohol use, unspecified with withdrawal, unspecified; R56.9 - Unspecified convulsions Status: Acute (3) HTN (hypertension): Code(s): I10 - Essential (primary) hypertension Status: Acute (4) Hypernatremia: Code(s): E87.0 - Hyperosmolality and hypernatremia Status: Acute (5) Alcohol abuse: Code(s): F10.10 - Alcohol abuse, uncomplicated Status: Acute (6) Diarrhea: Code(s): R19.7 - Diarrhea, unspecified Status: Acute Plan (1) Seizure: ?Code(s): R56.9 - Unspecified convulsions ?Status:?Acute ?Assessment and Plan: 07/13/23: - CT head: 1. No intracranial hemorrhage, mass, or acute infarct. 2. Atrophy and chronic white matter changes, as above. - Neuro consulted, Joe VYAS provided the following recommendations: MRI EEG CIWA protocol obtain collateral information from family to clarify history/ETOH habits educated that he cannot drive until he is seizure-free for 6 months -epileptic medications dependent on further workup and collateral information from family - seizure precautions - CIWA assessments and protocol - trend labs, repeating CMP this evening - WBC 17.1, 9.1 late last night. likely reactive to seizure. 07/14/23: Neurology following MRI results pending Continue CIWA and seizure precautions Plan for EGD on Sunday if he still inpatient otherwise can follow-up outpatient for EEG Continue lorazepam per CIWA for seizure prevention 07/15/23: MRI was negative for stroke.? No contrast was used but no gadolinium was utilized CIWA was 2--no withdraw symptoms noted on exam Pt states he has not had alcohol in 1-2 months EEG planned for tomorrow since pt will be here 07/16/23: EEG today Neurology following EEG does not show seizure activity (2) Hypokalemia: ?Code(s): E87.6 - Hypokalemia ?Status:?Acute ?Assessment and Plan: 07/15/23: Noted on today's labs -will do 40 mEq IV in 20 oral - will repeat labs in the morning -continue to monitor on telemetry until out of critical range -could be due to recent diarrhea 07/16. corrected 07/16/23: K+ 2.9 today 60 meq KCL given Continue to trend (3) Alcohol abuse: ?Code(s): F10.10 - Alcohol abuse, uncomplicated ?Status:?Acute ?Assessment and Plan: 07/13/23: - daily ETOH use:? 12 pack of beer daily - last drink:? 07/05, approximately 1 week ago - [facility] protocol in place Ativan PRN seizure precautions neurochecks Q2H glucose Q6H - care coordination consulted for acute rehab services - antiemetics PRN - readiness to quit: Yes - the patient is denying history of withdrawal seizures, however has gone through withdrawal but experience nausea, vomiting, diaphoresis, and tremors.? Awaiting collateral from family. 07/15/23: No exam findings consistent with withdrawal at this time.? Last CIWA 2 Patient is adamant that he has not drink alcohol and at least a month but has given various answers to other people Continue to monitor 07/16/23: No change to current treatment plan 07/16: no sign or symptom of alcohol withdraw. provide folic acid thiamine p.o. (4) Hypernatremia: ?Code(s): E87.0 - Hyperosmolality and hypernatremia ?Status:?Acute ?Assessment and Plan: 07/13/23: - Na 140 x2 during chest pain workup, repeat after seizure 150 -> 135 - urine osmolality, serum osmolality, protein to creatinine ratio, urine creatinine, urine sodium - trend renal function and electrolytes 07/15/23: Sodium 134 Patient's sodium was 150 on admission which d
[2023-07-17 10:31] LABS: Hematocrit 39.8 % (42.0-52.0); Hemoglobin 13.2 g/dL (14.0-18.0); Immature Platelet Fraction Pct 7.1 % (0.9-11.2); Mean Corpuscular HGB Conc 33.2 g/dl (32-36); Mean Corpuscular Volume 93.4 fl (80-100); Mean Platelet Volume 10.5 fl (7.4-10.4); Platelet Count Result 122 k/mm3 (150-375); Red Blood Count 4.26 M/mm3 (4.6-6.20); Red Cell Distribution Width 13.2 % (11.5-14.5); White Blood Count 4.8 K/mm3 (4.5-10.0)
[2023-07-17 10:46] LABS: Anion Gap 11 mmol/L (4-12); Blood Urea Nitrogen 10 mg/dL (9-20); Calcium 9.1 mg/dL (8.4-10.2); Carbon Dioxide 23 mmol/L (22-30); Chloride 104 mmol/L (98-107); Estimated CRCL calculation 61 ml/min; Estimated Glomerular Filt Rate > 60; Glucose 159 mg/dL (65-110); Magnesium 1.4 mg/dL (1.6-2.3); Phosphorus 1.6 mg/dL (2.5-4.5); Potassium 3.6 mmol/L (3.4-5.0); Sodium 138 mmol/L (137-145)
--- NOTE | 2023-07-17 13:26 | PM.DS ---
DS: Admitting Diagnosis Discharge Date 07/16 Admitting Diagnosis (1) Seizure: ?Code(s): R56.9 - Unspecified convulsions ?Status:?Acute (2) Alcohol withdrawal seizure: ?Qualifiers: ?Complication of substance-induced condition:?with unspecified complication? Qualified Code(s):?F10.939 - Alcohol use, unspecified with withdrawal, unspecified; R56.9 - Unspecified convulsions ?Code(s): F10.939 - Alcohol use, unspecified with withdrawal, unspecified; R56.9 - Unspecified convulsions ?Status:?Acute (3) HTN (hypertension): ?Code(s): I10 - Essential (primary) hypertension ?Status:?Acute (4) Hypernatremia: ?Code(s): E87.0 - Hyperosmolality and hypernatremia ?Status:?Acute (5) Alcohol abuse: ?Code(s): F10.10 - Alcohol abuse, uncomplicated ?Status:?Acute (6) Diarrhea: ?Code(s): R19.7 - Diarrhea, unspecified ?Status:?Acute DS: Discharge Diagnosis Discharge Diagnosis (1) Seizure: Code(s): R56.9 - Unspecified convulsions Status: Acute (2) Alcohol withdrawal seizure: Qualifiers: Complication of substance-induced condition: with unspecified complication Qualified Code(s): F10.939 - Alcohol use, unspecified with withdrawal, unspecified; R56.9 - Unspecified convulsions Code(s): F10.939 - Alcohol use, unspecified with withdrawal, unspecified; R56.9 - Unspecified convulsions Status: Acute (3) HTN (hypertension): Code(s): I10 - Essential (primary) hypertension Status: Acute (4) Hypernatremia: Code(s): E87.0 - Hyperosmolality and hypernatremia Status: Acute (5) Alcohol abuse: Code(s): F10.10 - Alcohol abuse, uncomplicated Status: Acute (6) Diarrhea: Code(s): R19.7 - Diarrhea, unspecified Status: Acute DS: Summary Hospital Course Hospital Course: 67 y/o M presents here with seizure with PMH of alcoholism, right AKA, GERD, and HTN. Patient was seen last night in the emergency department for burning chest pain that had been ongoing since yesterday.? Described the pain as burning with radiation to his throat into his chest and abdomen.? Pain accompanied by nausea and vomiting.? Patient was initially tachycardic, normalized with IV fluids.? Lab work showed no anemia, no leukocytosis, with some evidence of dehydration.? UA sent for culture given presence of wbc's.? Patient reported improvement with Protonix and Zofran and was discharged with resources for abstaining from alcohol as well as a prescription for Protonix daily.? While patient was waiting for a ride to come pick him up he had a seizure while in the waiting room.? Seizure self aborted, was given 2 mg of Ativan, and initially postictal.? Later reassessment patient was A&O x3 and reported previous history of seizures related to alcohol withdrawal.? States that he drinks a 12 pack of beer per day.? Last drink was yesterday, 07/11, at XX o'clock.? Patient admitted for possible alcohol withdrawal and seizure workup.? Per chart review, neuro discussed history with patient and he denied current daily alcohol use and had alcoholic cessation 6 months ago.? Patient was also not able to confirm nor deny a previous history of seizures secondary to alcohol withdrawal.? Patient is reporting to this provider that he drinks quite a bit daily, reports 12 pack of beer today and no hard alcohol use. Reports last drink was Sunday on 07/05. Denies previous hx of seizures or seizures secondary to ETOH withdrawal. Has previously had withdrawal symptoms, i.e. N/V/D, tremors, and diaphoresis. Denies GUSTAFSON. Initial VS at presentation:? 98? F, HR 127, RR 18, 160/78, and 97%.? HR has since improved to 70's-80's. . ED workup showed:? WBC 17.1, hemoglobin 13, sodium 150, lactic 22.9, AST 86, ALT 70, and UDS previously negative during initial ED workup for chest pain.? Head CT shows no acute findings and atrophy/chronic white matter changes. the following med issues have been
== END 2023-07-17 15:30 | disposition home health service (06) | DRG 897 ==
LOC: ANHED 07:31 → ANHIMU 10:16 → ANH3MED 07-16 07:04 → ANHIMU 07-18 11:49
PROVIDERS: Emergency Medicine; Physician Assistant; Student in an Organized Health Care Education/Training Program; Admitting Provider Hospitalist; Emergency Provider Preventive Medicine Aerospace Medicine; Visit Provider Hospitalist
DX: F10.239 Alcohol dependence with withdrawal, unspecified (principal); G40.89 Other seizures; E87.0 Hyperosmolality and hypernatremia; E86.0 Dehydration; I10 Essential (primary) hypertension; K21.9 Gastro-esophageal reflux disease without esophagitis; E87.6 Hypokalemia; R19.7 Diarrhea, unspecified; Z89.611 Acquired absence of right leg above knee
CPT/HCPCS: 36415; 70450; 70551; 80048; 80053; 80307; 81001; 82550; 82570; 82948; 83605; 83690; 83735; 83930; 83935; 84100; 84156; 84300; 84484; 85025; 85027; 85055; 87086; 93005; 95816; 96361; 96374; 96375; 97161; 99284; 99285; A9270; C9113; G0378; J1953; J2060; J2405; J2560; J3480; J7030; J7040; J7120

== ENCOUNTER 2023-10-17 06:50 | Inpatient (IN) | payer MEDICARE, MEDICAID, SELFPAY ==
[2023-10-17] VITALS (11 sets, daily range): BP systolic 120–161; BP diastolic 67–92; PULSE 67–88; RESP 12–20; TEMP 36.3–36.9; O2SAT 97–100; BMI 20.3
--- NOTE | ~2023-10-17 | CT_ITS ---
EXAMINATION: CT abdomen pelvis w con DATE: 10/17/2023 07:51 INDICATION: Abdominal pain. TECHNIQUE: Computed tomography (CT) of the abdomen and pelvis was performed with 100 mL Omnipaque 350 intravenous contrast. Automated exposure control and iterative reconstruction technique were employe d. The dose-length product was 626.43 mGy-cm. COMPARISON: CT abdomen and pelvis 12/29/2007 FINDINGS: The visualized portions of the lung bases demonstrate mild atelectasis. No pleural effusion . The heart size is normal. No pericardial effusion. The liver, gallbladder, spleen, pancreas, adrena l glands, and kidneys are normal. There are no dilated loops of bowel. The appendix is normal. The pr ostate is mildly enlarged. There are no pathologically enlarged lymph nodes. There is no free intrape ritoneal fluid. There is severe fatty atrophy of some of the muscles in right thigh. There is mild shira mbar spondylosis. IMPRESSION: 1. No etiology for the patient's symptoms. Reviewed, dictated and finalized at location A.
--- NOTE | ~2023-10-17 | CT_ITS ---
EXAMINATION: CT brain wo con DATE: 10/17/2023 07:52 INDICATION: Unresponsive. Nonverbal. TECHNIQUE: Computed tomography (CT) of the head was performed without intravenous contrast. The mA wa s adjusted according to patient size. Iterative reconstruction technique was employed. The dose-lengt h product was 908.00 mGy-cm. COMPARISON: Head CT 07/13/2023, brain MRI 07/14/2023 FINDINGS: There are scattered areas of low attenuation in the cerebral white matter. There is no intr acranial hemorrhage, acute infarction, or abnormal intracranial mass lesion. The ventricles are antonina l in size. There are likely changes of right ocular lens replacement surgery. Left-sided phthisis bul bi is noted. There is mild mucosal thickening in the paranasal sinuses. The mastoid air cells are nor mal. There is cerumen in the external auditory canals. IMPRESSION: 1. Stable extensive nonspecific cerebral white matter disease, which likely represents chronic small vessel ischemic disease. Reviewed, dictated and finalized at location A. IMPRESSION: 1. Stable extensive nonspecific cerebral white matter disease, which likely rep resents chronic small vessel ischemic disease.
--- NOTE | ~2023-10-17 | CT_ITS ---
EXAMINATION: CT cervical spine wo con DATE: 10/17/2023 07:52 INDICATION: Unresponsive. TECHNIQUE: Computed tomography (CT) of the cervical spine was performed without intravenous contrast. Automated exposure control and iterative reconstruction technique were employed. The dose-length pro duct was 420.23 mGy-cm. COMPARISON: None FINDINGS: There is 5 degrees levocurvature of cervical spine. Vertebral body heights are normal. Ther e is moderately decreased disc height at C5-C6. The following disc levels are specifically discussed: C2-C3: There is severe bilateral uncovertebral joint osteoarthritis. There is mild right and severe l eft facet joint osteoarthritis. There is mild bilateral neural foraminal stenosis. There is no centra l canal stenosis. C3-C4: There is moderate right and mild left uncovertebral joint osteoarthritis. There is severe righ t and mild left facet joint osteoarthritis. There is moderate right and mild left neural foraminal st enosis. There is mild central canal stenosis. C4-C5: There is mild bilateral uncovertebral joint osteoarthritis. There is severe bilateral facet sloan int osteoarthritis. There is mild bilateral neural foraminal stenosis. There is mild central canal st enosis. C5-C6: There is severe bilateral uncovertebral joint osteoarthritis. There is severe bilateral facet joint osteoarthritis. There is mild bilateral neural foraminal stenosis. There is mild central canal stenosis. C6-C7: There is no uncovertebral joint osteoarthritis. There is moderate right and severe left facet joint osteoarthritis. There is mild bilateral neural foraminal stenosis. There is mild central canal stenosis. C7-T1: There is no uncovertebral joint osteoarthritis. There is severe bilateral facet joint osteoart hritis. There is mild right and moderate left neural foraminal stenosis. There is no central canal st enosis. IMPRESSION: 1. No fracture. 2. Moderate cervical spondylosis. Reviewed, dictated and finalized at location A.
--- NOTE | ~2023-10-17 | XR_ITS ---
EXAMINATION: XR chest 1V portable 10/17/2023 10:10 INDICATION: Confusion PROCEDURE: AP portable chest COMPARISON: No prior studies for comparison. FINDINGS: The lungs are clear. The cardiomediastinal silhouette is within normal limits. There are no pleural effusions. There is no pneumothorax suspected. IMPRESSION: 1: NO ACUTE CARDIOPULMONARY DISEASE. Reviewed, dictated and finalized at location B.
--- NOTE | ~2023-10-17 | US_ITS ---
EXAMINATION: US carotid duplex BI DATE: 10/18/2023 14:30 INDICATION: Cerebrovascular disease. TECHNIQUE: Grayscale, color Doppler, and pulsed Doppler images of the cervical carotid arteries were obtained. The degree of vessel stenosis is placed in one of the following categories: normal, <50%, 5 0-69%, >=70% but less than near-occlusion, near-occlusion, or total occlusion. Note that percent sten osis relative to normal distal artery lumen diameter is indirectly measured from velocity measurement s as described by Joselo, et al. Radiology 2003; 229:340-346. COMPARISON: None. FINDINGS: RIGHT: The right common carotid artery (CCA) peak systolic velocity (PSV) is 72 cm/s. The right internal car otid artery (ICA) PSV is 63 cm/s. The right ICA end-diastolic velocity (EDV) is 22 cm/s. The right IC A/CCA PSV ratio is 0.9. Grayscale and color Doppler images yield an estimate of <50% diameter reducti on from plaque in the ICA. There is antegrade flow in the right vertebral artery. LEFT: The left CCA PSV is 75 cm/s. The left ICA PSV is 68 cm/s. The left ICA EDV is 19 cm/s. The left ICA/C CA PSV ratio is 0.9. Grayscale and color Doppler images yield an estimate of <50% diameter reduction from plaque in the ICA. There is antegrade flow in the left vertebral artery. IMPRESSION: 1. <50% stenosis in the right internal carotid artery. 2. <50% stenosis in the left internal carotid artery. Reviewed, dictated and finalized at location A.
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
[2023-10-17 07:12] LABS: Basophils Percent Auto 0.2 % (0.2-1.2); Hematocrit 38.5 % (42.0-52.0); Hemoglobin 13.1 g/dL (14.0-18.0); Immature Granulocyte Absolute 0.07 K/mm3 (0.00-0.031); Immature Granulocyte Percent A 0.7 % (0-0.5); Lymphocytes Absolute Auto 0.99 K/mm3 (0.9-3.2); Lymphocytes Percent Auto 9.6 % (18.3-44.2); Mean Corpuscular Hemoglobin 31.3 pg (26-34); Mean Corpuscular Volume 92.1 fl (80-100); Mean Platelet Volume 10.6 fl (7.4-10.4); Monocytes Absolute Auto 1.2 K/mm3 (0.1-0.6); Monocytes Percent Auto 11.9 % (2.6-8.5); Neutrophils Percent Auto 77.6 % (45.5-73.1); Platelet Count Result 152 k/mm3 (150-375); Red Blood Count 4.18 M/mm3 (4.6-6.20); Red Cell Distribution Width 13.2 % (11.5-14.5); White Blood Count 10.3 K/mm3 (4.5-10.0)
[2023-10-17 07:22] LABS: Lactic Acid Reflex 2.4 mmol/L (0.7-2.0)
[2023-10-17 07:23] LABS: Alanine Aminotransferase 41 U/L (6-50); Alkaline Phosphatase 68 U/L (38-126); Anion Gap 15 mmol/L (4-12); Aspartate Amino Transferase 74 U/L (17-59); Bilirubin,Total 1.4 mg/dL (0.2-1.3); Blood Urea Nitrogen 14 mg/dL (9-20); Carbon Dioxide 21 mmol/L (22-30); Chloride 103 mmol/L (98-107); Estimated Glomerular Filt Rate > 60; Glucose 134 mg/dL (65-110); Lipase 95 U/L (23-300); Potassium 3.7 mmol/L (3.4-5.0); Sodium 139 mmol/L (137-145)
[2023-10-17 07:30] LABS: Add Urine Microscopic? YES; Appearance Urine Turbid (Clear); Bacteria Urine 4+ /hpf; Bilirubin Urine Negative (Negative); Blood Urine Trace (Negative); Color Urine Dark Yellow (Yellow); Glucose Urine UA Negative (Negative); Ketones Urine Trace mg/dL (Negative); Leukocyte Esterase Ur 2+ LEU/UL (Negative); Nitrate Urine Negative (Negative); Protein Urine 1+ mg/dL (Negative); RBC Urine 0-2 /hpf (0-2); Specific Grav Ur 1.021 (1.001-1.035); Squamous Epithelial Cell Urine Moderate /hpf (Few); Urobilinogen Urine 0.2 mg/dL (<2.0); WBC Urine 51-100 /hpf (0-3); pH Urine 5.5 (5.0-9.0)
[2023-10-17 07:41] LABS: Amphetamine Screen Urine Negative (Negative); Barbiturate Screen Urine Negative (Negative); Benzodiazepines Screen Urine Negative (Negative); Cannabinoid Screen Urine Negative (Negative); Cocaine Screen Urine Negative (Negative); Methadone Screen Urine Negative (Negative); Opiate Screen Urine Negative (Negative); Phencyclidine Screen Urine Negative (Negative)
[2023-10-17] MEDS: SODIUM CHLORIDE 0.9% IV 1,000 ML 999 ML IV CONT (07:52)
[2023-10-17 07:54] LABS: Ethanol < 10 mg/dL (<10)
[2023-10-17 10:10] LABS: Reflex Lactic Acid Yes or No Add Lactic
[2023-10-17 10:40] LABS: Lactic Acid Reflex 1.9 mmol/L (0.7-2.0)
[2023-10-17] MEDS: SODIUM CHLORIDE 0.9% IV 1,000 ML 150 ML IV CONT ×2 (11:25→17:56)
--- NOTE | 2023-10-17 11:30 | ADMGEN ---
This patient, Dejon Henry, was admitted to [facility] Room 304-01. Patient/family oriented to hospital policies and general routines including ID bracelet, bed and alarms, visiting hours, pain management, procedures, bathroom and other care routines, personal items, smoking policy, room service/diet, and visiting hours. Information on how to activate the Rapid Response Team has been discussed. Patient/Family are encouraged to report perceived risks to care and to ask questions if they do not understand what they are told or what they should do. Report from Carlie in ER.
[2023-10-17 11:33] LABS: Creatine Kinase 5864 U/L (55-170)
--- NOTE | 2023-10-17 11:57 | PC.NURSE ---
Pt stated during admission process that he drinks approximately a 6 pack per week if he's not with anyone, but if he is with friends/family he can drink 6-12/day or maybe even more. Pt also stated he doesnt take his medicine anymore.
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
[2023-10-17] MEDS: levETIRAcetam 1000MG/NACL100ML 1,000 MG/100 ML BAG 400 MG IVPB (20:34)
[2023-10-17] MEDS: ACETAMINOPHEN 325 MG TABLET 650 MG PO (20:34)
[2023-10-18] VITALS (7 sets, daily range): BP systolic 137–154; BP diastolic 73–82; PULSE 56–77; RESP 16–18; TEMP 36.2–36.8; O2SAT 100
--- NOTE | 2023-10-18 | ECHO_ITS ---
Patient Info Name: Dejon Henry Age: 67 years : 1955 Gender: Male Ht: 66 in Wt: 127 lbs BSA: 1.63 m2 HR: 56 bpm BP: 137 / 80 mmHg Heart Rhythm: Sinus Rhythm Technical Quality: Fair Exam Date: 10/18/2023 3:33 PM Exam Location: Echo Lab Patient Status: Inpatient Admit Date: 10/17/2023 Staff Ordering Physician: Tia Gupta MD Sr Vice President: Neftali Bruno kelechi Attending Provider: Jake Garland MD Referring Physician: Candy AMATO; Exam Type: CA echo doppler w bubble study Study Info Indications - episodes of unresponsiveness I69.90 - Unspecified sequelae of unspecified cerebrovascular disease Complete two-dimensional, color flow and Doppler transthoracic echocardiogram is performed with agitated saline. Contrast/Agitated Saline Contrast/Ag. Saline: Agitated Saline Amount: 14.00 ml IV Access Condition: patent with no signs of infiltration Summary 1. Normal leftVentricular size with normal systolic function and grade 1 diastolic noncompliance. 2. Mild left atrial enlargement. 3. Mild pulmonic valve insufficiency. 4. Agitated saline contrast injection demonstrates no intracardiac shunt. Left Ventricle Left ventricular chamber dimension is normal. Left ventricular systolic function is normal, estimated at 60-65%. The left ventricular diastolic function is grade I diastolic dysfunction. Right Ventricle Right ventricular chamber dimension is normal. Left Atria Left atrial chamber dimension is mildly enlarged. Right Atria Right atrial chamber dimension is normal. Aortic Valve The aortic valve is normal. Pulmonic Valve The pulmonic valve is normal. There is mild pulmonic regurgitation. Mitral Valve The mitral valve has normal leaflets. Tricuspid Valve The tricuspid valve leaflets are normal. Pericardium/Pleural The pericardium appears normal. Aorta The aortic root size at the sinus of Valsalva is normal. Left Ventricular Outflow Tract Name Value Normal LVOT 2D LVOT Diameter 2.0 cm LVOT Doppler LVOT Peak Gradient 5 mmHg LVOT Mean Gradient 2 mmHg LVOT VTI 22 cm LVOT VTI/AV VTI Ratio 0.8 LVOT Stroke Volume 66 ml LVOT CO 4.3 l/min LVOT CI 2.6 l/min/m2 Pulmonic Valve Name Value Normal PV Doppler PV Peak Gradient 3 mmHg PV Regurgitation Doppler CA Peak End Diastolic Velocity 66 cm/s Mitral Valve Name Value Normal MV Doppler
[2023-10-18] MEDS: SODIUM CHLORIDE 0.9% IV 1,000 ML 150 ML IV CONT ×2 (00:48→16:05)
[2023-10-18] MEDS: LORazepam INJ (*CRX) 2 MG/ML VIAL 1 MG IV PUSH (01:24)
[2023-10-18 06:46] LABS: Basophils Absolute Auto 0.1 K/mm3 (0.0-0.1); Basophils Percent Auto 0.9 % (0.2-1.2); Eosinophils Absolute Auto 0.1 K/mm3 (0-0.3); Eosinophils Percent Auto 0.9 % (0-4.4); Hematocrit 33.9 % (42.0-52.0); Hemoglobin 11.3 g/dL (14.0-18.0); Immature Granulocyte Absolute 0.03 K/mm3 (0.00-0.031); Immature Granulocyte Percent A 0.5 % (0-0.5); Immature Platelet Fraction Pct 7.8 % (0.9-11.2); Lymphocytes Absolute Auto 1.39 K/mm3 (0.9-3.2); Lymphocytes Percent Auto 21.3 % (18.3-44.2); Mean Corpuscular HGB Conc 33.3 g/dl (32-36); Mean Corpuscular Volume 93.1 fl (80-100); Mean Platelet Volume 11.1 fl (7.4-10.4); Monocytes Absolute Auto 0.8 K/mm3 (0.1-0.6); Monocytes Percent Auto 11.7 % (2.6-8.5); Neutrophils Absolute Auto 4.2 K/mm3 (1.3-6.7); Neutrophils Percent Auto 64.7 % (45.5-73.1); Platelet Count Result 140 k/mm3 (150-375); Red Blood Count 3.64 M/mm3 (4.6-6.20); Red Cell Distribution Width 13.1 % (11.5-14.5); White Blood Count 6.5 K/mm3 (4.5-10.0)
[2023-10-18 06:59] LABS: Alanine Aminotransferase 40 U/L (6-50); Albumin Level 3.6 g/dL (3.5-5.1); Alkaline Phosphatase 47 U/L (38-126); Anion Gap 8 mmol/L (4-12); Aspartate Amino Transferase 119 U/L (17-59); Bilirubin,Total 1.7 mg/dL (0.2-1.3); Blood Urea Nitrogen 10 mg/dL (9-20); Calcium 7.7 mg/dL (8.4-10.2); Carbon Dioxide 26 mmol/L (22-30); Chloride 103 mmol/L (98-107); Estimated CRCL calculation 62 ml/min; Estimated Glomerular Filt Rate > 60; Glucose 93 mg/dL (65-110); Potassium 3.4 mmol/L (3.4-5.0); Sodium 137 mmol/L (137-145)
[2023-10-18 07:47] LABS: Creatine Kinase 12839 U/L (55-170)
--- NOTE | 2023-10-18 08:31 | P.PNIM_ITS ---
Progress Note: A&P Assessment and Plan (1) Rhabdomyolysis: Code(s): M62.82 - Rhabdomyolysis Status: Acute Assessment and Plan: 10/18/23: * Likely secondary to suspected seizure with postictal state * Initial CK 5864 * Total CK today 12,839 * Initial lactic acid 2.4> 1.9 * Will give 1 L normal saline bolus * Will increase maintenance IV fluids to 250 mL/hour * Will recheck labs at 4 p.m. (2) Seizure: Code(s): R56.9 - Unspecified convulsions Status: Acute Assessment and Plan: 10/18/23: * Continue seizure precaution * Continue Keppra * Plan for EEG today * Neurology consulted * Patient does have history of alcohol abuse with seizures. Patient states his last drink was 1.5 months ago. ETOH and drug screen negative this admission. (3) Confusion: Code(s): R41.0 - Disorientation, unspecified Status: Acute Assessment and Plan: 10/18/23: * Head CT showed stable extensive nonspecific cerebral white matter disease l ikely representing chronic small-vessel ischemic disease * C-spine CT was negative for fracture, showed moderate cervical spondylosis * Urine drug screen and ETOH negative * UA suggestive of UTI * Continue neuro checks q.4 hour * Neurology following (4) Urinary tract infection: Qualifiers: Hematuria presence: without hematuria Urinary tract infection type: acute cystitis Qualified Code(s): N30.00 - Acute cystitis without hematuria Code(s): N39.0 - Urinary tract infection, site not specified Status: Acute Assessment and Plan: 10/18/23: * UA showed 1+ urine protein, trace ketones, 2+ leukocytes, 51-100 urine WBC, 4+ bacteria * Urine culture was obtained and is pending * Patient was given a dose of Levaquin and then switched to Rocephin (5) Diarrhea: Qualifiers: Diarrhea type: unspecified type Qualified Code(s): R19.7 - Diarrhea, unspecified Code(s): R19.7 - Diarrhea, unspecified Status: Acute Assessment and Plan: 10/18/23: * Patient reporting diarrhea * CT of the abdomen pelvis with contrast was negative * Continue with IV fluids * Monitor electrolytes * C diff and stool cultures ordered (6) Abdominal pain: Qualifiers: Abdominal location: periumbilical Qualified Code(s): R10.33 - Periumbilical pain Code(s): R10.9 - Unspecified abdominal pain Status: Acute Assessment and Plan: 10/18/23: * Lipase 90 * CT the abdomen pelvis was negative * Likely related to diarrhea (7) HTN (hypertension): Qualifiers: Hypertension type: primary hypertension Qualified Code(s): I10 - Essential (primary) hypertension Code(s): I10 - Essential (primary) hypertension Status: Chronic Assessment and Plan: 10/18/23: * Blood pressure ranging 137/80 to 152/77 * Amlodipine ordered Time Spent With Patient Time with patient: Greater than 35 minutes Subjective Date/time seen: 10/18/23 08:31 Interval history: Interval history: This is a 67-year-old male presented to the hospital on 10/17/2023 with altered mental status and abdominal pain. Workup in the hospital included a chest x-ray which was negative. Cervical spine CT which was negative for fracture, showed moderate cervical spondylosis. Abdomen/pelvis CT was negative. Head CT showed stable extensive nonspecific cerebral white matter disease representing chronic small vessel ischemic disease. Initial labs showed a whit
--- NOTE | 2023-10-18 08:31 | PM.IMPN ---
Progress Note: A&P Assessment and Plan (1) Rhabdomyolysis: Code(s): M62.82 - Rhabdomyolysis Status: Acute Assessment and Plan: 10/18/23: Likely secondary to suspected seizure with postictal state Initial CK 5864 Total CK today 12,839 Initial lactic acid 2.4> 1.9 Will give 1 L normal saline bolus Will increase maintenance IV fluids to 250 mL/hour Will recheck labs at 4 p.m. (2) Seizure: Code(s): R56.9 - Unspecified convulsions Status: Acute Assessment and Plan: 10/18/23: Continue seizure precaution Continue Keppra Plan for EEG today Neurology consulted Patient does have history of alcohol abuse with seizures. Patient states his last drink was 1.5 months ago. ETOH and drug screen negative this admission. (3) Confusion: Code(s): R41.0 - Disorientation, unspecified Status: Acute Assessment and Plan: 10/18/23: Head CT showed stable extensive nonspecific cerebral white matter disease likely representing chronic small-vessel ischemic disease C-spine CT was negative for fracture, showed moderate cervical spondylosis Urine drug screen and ETOH negative UA suggestive of UTI Continue neuro checks q.4 hour Neurology following (4) Urinary tract infection: Qualifiers: Hematuria presence: without hematuria Urinary tract infection type: acute cystitis Qualified Code(s): N30.00 - Acute cystitis without hematuria Code(s): N39.0 - Urinary tract infection, site not specified Status: Acute Assessment and Plan: 10/18/23: UA showed 1+ urine protein, trace ketones, 2+ leukocytes, 51-100 urine WBC, 4+ bacteria Urine culture was obtained and is pending Patient was given a dose of Levaquin and then switched to Rocephin (5) Diarrhea: Qualifiers: Diarrhea type: unspecified type Qualified Code(s): R19.7 - Diarrhea, unspecified Code(s): R19.7 - Diarrhea, unspecified Status: Acute Assessment and Plan: 10/18/23: Patient reporting diarrhea CT of the abdomen pelvis with contrast was negative Continue with IV fluids Monitor electrolytes C diff and stool cultures ordered (6) Abdominal pain: Qualifiers: Abdominal location: periumbilical Qualified Code(s): R10.33 - Periumbilical pain Code(s): R10.9 - Unspecified abdominal pain Status: Acute Assessment and Plan: 10/18/23: Lipase 90 CT the abdomen pelvis was negative Likely related to diarrhea (7) HTN (hypertension): Qualifiers: Hypertension type: primary hypertension Qualified Code(s): I10 - Essential (primary) hypertension Code(s): I10 - Essential (primary) hypertension Status: Chronic Assessment and Plan: 10/18/23: Blood pressure ranging 137/80 to 152/77 Amlodipine ordered Time Spent With Patient Time with patient: Greater than 35 minutes Subjective Date/time seen: 10/18/23 08:31 Interval history: Interval history: This is a 67-year-old male presented to the hospital on 10/17/2023 with altered mental status and abdominal pain. Workup in the hospital included a chest x-ray which was negative. Cervical spine CT which was negative for fracture, showed moderate cervical spondylosis. Abdomen/pelvis CT was negative. Head CT showed stable extensive nonspecific cerebral white matter disease representing chronic small vessel ischemic disease. Initial labs showed a white blood cell count of 10.3, hemoglobin 13.1, bicarb 21, anion gap 15, lactic acid 2.4> 1.9, total bili 1.4, AST 74, total CK of 5864. UA was obtained and showed 1+ urine protein, trace ketone, 2+ leukocytes, 51-100 urine WBC, 4+ bacteria. The urine drug screen and alcohol was negative. Urine culture was obtained and is pending. Patient was given a dose of Keppra, Levaquin, and some Ativan while in the ED. neurology was consulted. 10/18/23: Patient denies any fever, chills, nausea, vomiting, d
[2023-10-18] MEDS: SODIUM CHLORIDE 0.9% IV 1,000 ML 999 ML IV CONT (09:13)
[2023-10-18] MEDS: levETIRAcetam 500MG/NACL 100ML 500 MG/100 ML BAG 400 MG IVPB ×2 (09:14→20:31)
--- NOTE | 2023-10-18 11:46 | WPDNEURCNPN ---
Assessment and Plan Assessment and plan (1) Alcohol withdrawal seizure: Qualifiers: Complication of substance-induced condition: with unspecified complication Qualified Code(s): F10.939 - Alcohol use, unspecified with withdrawal, unspecified; R56.9 - Unspecified convulsions Code(s): F10.939 - Alcohol use, unspecified with withdrawal, unspecified; R56.9 - Unspecified convulsions Status: Acute (2) Rhabdomyolysis: Code(s): M62.82 - Rhabdomyolysis Status: Acute (3) Urinary tract infection: Qualifiers: Hematuria presence: without hematuria Urinary tract infection type: acute cystitis Qualified Code(s): N30.00 - Acute cystitis without hematuria Code(s): N39.0 - Urinary tract infection, site not specified Status: Acute Plan On on this visit we do not have a eyewitness account of any seizures however in the previous visit it was thought that he has had withdrawal seizures. He was not taking any medication prior to this admission. He has not been started on Keppra 5 mg twice a day after giving a initial dose of 1000 mg. I will suggest to continue the Keppra for now however 1 can only hope for compliance after discharge. He does seem to be having some withdrawal symptoms such as mild tremor of the outstretched hand. The other concern is that he does seem to have significant white matter changes noted on the CT scan of the brain as well as MRI of the brain. Suggest check his carotid Doppler study and echocardiogram lipid profile and also increase the dose of Keppra to 750 mg twice a day. I shall be glad to follow him up. Thank you very much. Consult date: 10/18/23 HPI: Dejon Henry is a 67 year old male with history of alcoholism. He was found nearly naked and confused in a parking lot near his apartment. In the hospital his the CPK was found to be high at 5864 which subsequently went up to 12,839. He was very confused upon arrival however mental status gradually increased. He is currently on one-to-one observation in the room. He has not been acting inappropriately this morning. He does have history of alcohol drinking for long time and has had a seizure following that in the previous admission in July this year. Dr. Diaz my associate saw him on 07/13/2023 and thought that he was likely to have alcohol withdrawal seizures. EEG performed on 07/16/1999 24 was reported to be normal. He also is suspected of urinary tract infection. He is currently on Keppra 1000 mg a day. His AST was high at 119 however ALT was normal. Creatinine was also normal. CT scan of the brain and MRI of the brain have shown white matter changes however MRI was done on the previous admission in July 2023 and was found to have significant white matter changes. A CT scan of brain on this admission shows white matter changes however motion artifacts were noted. The patient himself states that he has not had any alcohol for 1/2 months. However it was noted that he has made statements similar to this in the previous admission also. He lives by himself. No family members were available at this time. 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 The patient states that he has phantom pain and he needs to take pain medications. He was advised to take Tylenol with codeine and a he went on and on about to her taking the medication before the pain starts worse is a when he is already in pain and that seems to make a difference in terms of his a tendency to get side effects or even fall and he attributes this fall to taking Tylenol with codeine. At this time however he denies any specific symptoms. Review of Systems Review of Systems: All systems reviewed & are unremarkable except as noted in HPI and below PMFSH Past Medical History Medical History Alcohol abuse Blind left eye GERD (gastroesophageal reflux disease) HTN (hypertension)
[2023-10-18 12:37] LABS: Cholesterol 138 mg/dL (0-200); HDL Direct 43 mg/dL; Triglycerides 74 mg/dL (<150)
[2023-10-18 12:48] LABS: LDL Cholesterol Direct 80 mg/dL
[2023-10-18 13:35] LABS: Vitamin D 25 Hydroxy < 12.8 ng/mL
[2023-10-18 13:44] LABS: Folic Acid 12.1 ng/mL (2.76->20)
[2023-10-18] MEDS: SODIUM CHLORIDE 0.9% IV 1,000 ML 250 ML IV CONT (20:26)
[2023-10-18 23:29] LABS: Toxigenic C. Diff NEGATIVE (NEGATIVE)
[2023-10-19] VITALS (9 sets, daily range): BP systolic 145–166; BP diastolic 82–90; PULSE 58–83; RESP 18–20; TEMP 36.6–37.2; O2SAT 99–100
[2023-10-19] MEDS: SODIUM CHLORIDE 0.9% IV 1,000 ML 250 ML IV CONT ×3 (01:50→09:15)
[2023-10-19 07:00] LABS: Creatine Kinase > 16000 U/L (55-170)
--- NOTE | 2023-10-19 07:38 | P.PNIM_ITS ---
Progress Note: A&P Assessment and Plan (1) Seizure: Code(s): R56.9 - Unspecified convulsions Status: Acute Assessment and Plan: 10/18/23: * Continue seizure precaution * Continue Keppra * Plan for EEG today * Neurology consulted * Patient does have history of alcohol abuse with seizures. Patient states his last drink was 1.5 months ago. ETOH and drug screen negative this admission. 10/19/23: * Neurology following * Awaiting EEG results * Echo results pending * Total CK greater than 16,000. No need to trend any further as it will remain elevated 4 up to 10 days (2) Confusion: Code(s): R41.0 - Disorientation, unspecified Status: Acute Assessment and Plan: 10/18/23: * Head CT showed stable extensive nonspecific cerebral white matter disease likely representing chronic small-vessel ischemic disease * C-spine CT was negative for fracture, showed moderate cervical spondylosis * Urine drug screen and ETOH negative * UA suggestive of UTI * Continue neuro checks q.4 hour * Neurology following 10/19/23: * Urine culture negative * Neurology following * Continue neuro checks (3) Urinary tract infection: Qualifiers: Hematuria presence: without hematuria Urinary tract infection type: acute cystitis Qualified Code(s): N30.00 - Acute cystitis without hematuria Code(s): N39.0 - Urinary tract infection, site not specified Status: Acute Assessment and Plan: 10/18/23: * UA showed 1+ urine protein, trace ketones, 2+ leukocytes, 51-100 urine WBC, 4+ bacteria * Urine culture was obtained and is pending * Patient was given a dose of Levaquin and then switched to Rocephin 10/19/23: * Urine culture negative * Rocephin discontinued (4) Diarrhea: Qualifiers: Diarrhea type: unspecified type Qualified Code(s): R19.7 - Diarrhea, unspecified Code(s): R19.7 - Diarrhea, unspecified Status: Acute Assessment and Plan: 10/18/23: * Patient reporting diarrhea * CT of the abdomen pelvis with contrast was negative * Continue with IV fluids * Monitor electrolytes * C diff and stool cultures ordered 10/19/23: * C diff negative * Stool cultures pending * Continue IVF (5) Abdominal pain: Qualifiers: Abdominal location: periumbilical Qualified Code(s): R10.33 - Periumbilical pain Code(s): R10.9 - Unspecified abdominal pain Status: Acute Assessment and Plan: 10/18/23: * Lipase 90 * CT the abdomen pelvis was negative * Likely related to diarrhea 10/19/23: * No change (6) HTN (hypertension): Qualifiers: Hypertension type: primary hypertension Qualified Code(s): I10 - Essential (primary) hypertension Code(s): I10 - Essential (primary) hypertension Status: Chronic Assessment and Plan: 10/18/23: * Blood pressure ranging 137/80 to 152/77 * Amlodipine ordered 10/19/23: * No change to current treatment plan Time Spent With Patient Time with patient: 25 - 35 minutes Subjective Date/time seen: 10/19/23 07:38 Interval history: Interval history: This is a 67-year-old male presented to the hospital on 10/17/2023 with altered mental status and abdominal pain. Workup in the hospital included a chest x-ray which was negative. Cervical spine CT which was negative for fracture, showed moderate cervical spondylosis. Abdomen/pelvis CT was negative. Head CT
--- NOTE | 2023-10-19 07:38 | PM.IMPN ---
Progress Note: A&P Assessment and Plan (1) Seizure: Code(s): R56.9 - Unspecified convulsions Status: Acute Assessment and Plan: 10/18/23: Continue seizure precaution Continue Keppra Plan for EEG today Neurology consulted Patient does have history of alcohol abuse with seizures. Patient states his last drink was 1.5 months ago. ETOH and drug screen negative this admission. 10/19/23: Neurology following Awaiting EEG results Echo results pending Total CK greater than 16,000. No need to trend any further as it will remain elevated 4 up to 10 days (2) Confusion: Code(s): R41.0 - Disorientation, unspecified Status: Acute Assessment and Plan: 10/18/23: Head CT showed stable extensive nonspecific cerebral white matter disease likely representing chronic small-vessel ischemic disease C-spine CT was negative for fracture, showed moderate cervical spondylosis Urine drug screen and ETOH negative UA suggestive of UTI Continue neuro checks q.4 hour Neurology following 10/19/23: Urine culture negative Neurology following Continue neuro checks (3) Urinary tract infection: Qualifiers: Hematuria presence: without hematuria Urinary tract infection type: acute cystitis Qualified Code(s): N30.00 - Acute cystitis without hematuria Code(s): N39.0 - Urinary tract infection, site not specified Status: Acute Assessment and Plan: 10/18/23: UA showed 1+ urine protein, trace ketones, 2+ leukocytes, 51-100 urine WBC, 4+ bacteria Urine culture was obtained and is pending Patient was given a dose of Levaquin and then switched to Rocephin 10/19/23: Urine culture negative Rocephin discontinued (4) Diarrhea: Qualifiers: Diarrhea type: unspecified type Qualified Code(s): R19.7 - Diarrhea, unspecified Code(s): R19.7 - Diarrhea, unspecified Status: Acute Assessment and Plan: 10/18/23: Patient reporting diarrhea CT of the abdomen pelvis with contrast was negative Continue with IV fluids Monitor electrolytes C diff and stool cultures ordered 10/19/23: C diff negative Stool cultures pending Continue IVF (5) Abdominal pain: Qualifiers: Abdominal location: periumbilical Qualified Code(s): R10.33 - Periumbilical pain Code(s): R10.9 - Unspecified abdominal pain Status: Acute Assessment and Plan: 10/18/23: Lipase 90 CT the abdomen pelvis was negative Likely related to diarrhea 10/19/23: No change (6) HTN (hypertension): Qualifiers: Hypertension type: primary hypertension Qualified Code(s): I10 - Essential (primary) hypertension Code(s): I10 - Essential (primary) hypertension Status: Chronic Assessment and Plan: 10/18/23: Blood pressure ranging 137/80 to 152/77 Amlodipine ordered 10/19/23: No change to current treatment plan Time Spent With Patient Time with patient: 25 - 35 minutes Subjective Date/time seen: 10/19/23 07:38 Interval history: Interval history: This is a 67-year-old male presented to the hospital on 10/17/2023 with altered mental status and abdominal pain. Workup in the hospital included a chest x-ray which was negative. Cervical spine CT which was negative for fracture, showed moderate cervical spondylosis. Abdomen/pelvis CT was negative. Head CT showed stable extensive nonspecific cerebral white matter disease representing chronic small vessel ischemic disease. Initial labs showed a white blood cell count of 10.3, hemoglobin 13.1, bicarb 21, anion gap 15, lactic acid 2.4> 1.9, total bili 1.4, AST 74, total CK of 5864. UA was obtained and showed 1+ urine protein, trace ketone, 2+ leukocytes, 51-100 urine WBC, 4+ bacteria. The urine drug screen and alcohol was negative. Urine culture was obtained and is pending. Patient was given a dose of Keppra, Levaquin, and some Ativan while in the ED. ne
[2023-10-19 07:43] LABS: Basophils Percent Auto 0.5 % (0.2-1.2); Eosinophils Absolute Auto 0.1 K/mm3 (0-0.3); Eosinophils Percent Auto 0.9 % (0-4.4); Hematocrit 37.3 % (42.0-52.0); Hemoglobin 12.6 g/dL (14.0-18.0); Immature Granulocyte Absolute 0.03 K/mm3 (0.00-0.031); Immature Granulocyte Percent A 0.4 % (0-0.5); Immature Platelet Fraction Pct 8.3 % (0.9-11.2); Lymphocytes Absolute Auto 1.18 K/mm3 (0.9-3.2); Lymphocytes Percent Auto 15.9 % (18.3-44.2); Mean Corpuscular HGB Conc 33.8 g/dl (32-36); Mean Corpuscular Volume 91.9 fl (80-100); Mean Platelet Volume 11.5 fl (7.4-10.4); Monocytes Absolute Auto 0.8 K/mm3 (0.1-0.6); Monocytes Percent Auto 10.1 % (2.6-8.5); Neutrophils Absolute Auto 5.3 K/mm3 (1.3-6.7); Neutrophils Percent Auto 72.2 % (45.5-73.1); Platelet Count Result 146 k/mm3 (150-375); Red Blood Count 4.06 M/mm3 (4.6-6.20); White Blood Count 7.4 K/mm3 (4.5-10.0)
[2023-10-19 07:48] LABS: Alanine Aminotransferase 52 U/L (6-50); Albumin Level 4.1 g/dL (3.5-5.1); Alkaline Phosphatase 55 U/L (38-126); Anion Gap 12 mmol/L (4-12); Aspartate Amino Transferase 205 U/L (17-59); Bilirubin,Total 1.2 mg/dL (0.2-1.3); Blood Urea Nitrogen 10 mg/dL (9-20); Calcium 8.2 mg/dL (8.4-10.2); Carbon Dioxide 23 mmol/L (22-30); Chloride 101 mmol/L (98-107); Estimated CRCL calculation 70 ml/min; Estimated Glomerular Filt Rate > 60; Glucose 185 mg/dL (65-110); Sodium 136 mmol/L (137-145)
[2023-10-19] MEDS: amLODIPine BESYLATE 5 MG TABLET PO (09:15)
[2023-10-19] MEDS: ACETAMINOPHEN 325 MG TABLET 650 MG PO (09:15)
[2023-10-19] MEDS: levETIRAcetam Tablet 250 MG, levETIRAcetam Tablet 500 MG 750 MG PO ×2 (14:35→21:00)
[2023-10-19] MEDS: ACETAMINOPHEN/CODEINE (*CRX) 300/30 MG TABLET 1 TAB PO (16:54)
--- NOTE | 2023-10-19 18:39 | WPDNEUROPN ---
Progress Note: A&P Assessment and Plan (1) Alcohol withdrawal syndrome: Code(s): F10.939 - Alcohol use, unspecified with withdrawal, unspecified Status: Acute (2) Rhabdomyolysis: Code(s): M62.82 - Rhabdomyolysis Status: Resolved Plan his CPK keeps going up to now around 16,000. I can stay on Keppra for now. He may require some Librium magnesium and vitamin B1 supplements. Supportive care for withdrawal From alcohol may be offered depending upon his progress. Subjective Date/time seen: 10/19/23 18:39 Interval history: the patient remains awake and alert and has not had any seizure-like activity however he was somewhat agitated and pulled out the IV. The nursing staff call me and I advised to switch Keppra IV to Keppra tablet 750 mg twice a day. He is complaining of some abdominal pain. His CPK is still pretty high. Review of Systems Review of Systems: All systems reviewed & are unremarkable except as noted in HPI and below Exam Narrative: fully conscious alert appears to somewhat tremulous. No aphasia or dysarthria. No other additional new findings were noted at this time. Objective Data Vital Signs Vital Signs: Vital Signs - 24 hr 10/18/23 20:34 10/18/23 20:00 10/19/23 05:54 Temperature 36.8 C 36.6 C Pulse Rate 63 67 Respiratory Rate 16 18 Blood Pressure 141/73 H 166/87 H Pulse Oximetry 100 100 Oxygen Delivery Room Air 10/18/23 20:00 10/19/23 00:00 10/19/23 04:00 Temperature Pulse Rate 61 58 L 62 Respiratory Rate Blood Pressure Pulse Oximetry Oxygen Delivery 10/19/23 07:50 10/19/23 08:00 10/19/23 12:00 Temperature 36.9 C Pulse Rate 72 83 70 Respiratory Rate 20 Blood Pressure 148/89 H Pulse Oximetry 99 Oxygen Delivery 10/19/23 14:00 Temperature 37.2 C Pulse Rate 78 Respiratory Rate 18 Blood Pressure 147/90 H Pulse Oximetry 100 Oxygen Delivery Intake/Output Intake/Output: Intake & Output 10/16/23 10/17/23 10/18/23 10/19/23 23:59 23:59 23:59 23:59 Intake Total 2607.5 4976.5 2959.5 Output Total 019 309 9945 Balance 2287.5 4026.5 -1740.5 Meds/Results Medications: Active Medications Generic Name Dose Route Start Last Admin Trade Name Alexis PRN Reason Stop Dose Admin Acetaminophen 650 mg 10/17/23 13:34 10/19/23 09:15 Acetaminophen 325 Mg Tablet PO 650 mg Q4H PRN Administration Mild Pain (1-3) or Fever Acetaminophen/Codeine Phosphate 1 tab 10/18/23 10:34 10/19/23 16:54 Acetaminophen/Codeine (*Crx) 300/30 Mg Tablet PO 1 tab Q4H PRN Administration Pain Rated 4-6 Amlodipine Besylate 5 mg 10/19/23 09:00 10/19/23 09:15 Amlodipine Besylate 5 Mg Tablet PO 5 mg DAILY ANASTACIO Administration Levetiracetam 250 mg/ 750 mg 10/19/23 13:00 10/19/23 14:35 Levetiracetam 500 mg PO 750 mg Q12HR ANASTACIO Administration Perflutren Lipid Microsphere 0 ml 10/18/23 11:55 Perflutren Lipid Microspheres 1.5 Ml Vial Diluted To 10 Ml Total Volume IV PUSH 10/21/23 11:57 ONCE PRN adequate visualization Protocol Radiology Results: ITS Impressions Head CT 10/17/23 07:54 IMPRESSION: 1. Stable extensive nonspecific cerebral white matter disease, which likely represents chronic small vessel ischemic disease. Abdomen/Pelvis CT 10/17/23 07:56 IMPRESSION: 1. No etiology for the patient's symptoms. Cervical Spine CT 10/17/23 07:59 IMPRESSION: 1. No fracture. 2. Moderate cervical spondylosis. Chest X-Ray 10/17/23 10:14 IMPRESSION: 1: NO ACUTE CARDIOPULMONARY DISEASE. Carotid Doppler Study 10/18/23 14:33 IMPRESSION: 1. <50% stenosis in the right internal carotid artery. 2. <50% stenosis in the left internal carotid artery. Labs Labs: Laboratory Results - last 24 hr 10/18/23 10/19/23 10/19/23 21:48 05:51 05:56 WBC 7.4 RBC 4.06 L Hgb 12.6 L Hct 37.3 L MCV 91.9 MCH 31.0 MCHC 33.8
[2023-10-20] VITALS (9 sets, daily range): BP systolic 126–134; BP diastolic 74–75; PULSE 55–93; RESP 16–18; TEMP 36.2–37; O2SAT 98–100
[2023-10-20 06:05] LABS: Alanine Aminotransferase 62 U/L (6-50); Albumin Level 3.9 g/dL (3.5-5.1); Alkaline Phosphatase 49 U/L (38-126); Anion Gap 11 mmol/L (4-12); Aspartate Amino Transferase 166 U/L (17-59); Bilirubin,Total 1.2 mg/dL (0.2-1.3); Blood Urea Nitrogen 9 mg/dL (9-20); Calcium 8.4 mg/dL (8.4-10.2); Carbon Dioxide 25 mmol/L (22-30); Chloride 101 mmol/L (98-107); Estimated CRCL calculation 80 ml/min; Estimated Glomerular Filt Rate > 60; Glucose 109 mg/dL (65-110); Sodium 137 mmol/L (137-145)
[2023-10-20 06:06] LABS: Basophils Percent Auto 0.6 % (0.2-1.2); Eosinophils Absolute Auto 0.2 K/mm3 (0-0.3); Eosinophils Percent Auto 2.9 % (0-4.4); Hematocrit 34.2 % (42.0-52.0); Hemoglobin 11.8 g/dL (14.0-18.0); Immature Granulocyte Absolute 0.03 K/mm3 (0.00-0.031); Immature Granulocyte Percent A 0.4 % (0-0.5); Lymphocytes Absolute Auto 1.33 K/mm3 (0.9-3.2); Lymphocytes Percent Auto 18.7 % (18.3-44.2); Mean Corpuscular HGB Conc 34.5 g/dl (32-36); Mean Corpuscular Hemoglobin 31.1 pg (26-34); Mean Platelet Volume 10.6 fl (7.4-10.4); Monocytes Absolute Auto 0.8 K/mm3 (0.1-0.6); Monocytes Percent Auto 11.4 % (2.6-8.5); Neutrophils Absolute Auto 4.7 K/mm3 (1.3-6.7); Platelet Count Result 143 k/mm3 (150-375); White Blood Count 7.1 K/mm3 (4.5-10.0)
[2023-10-20] MEDS: amLODIPine BESYLATE 5 MG TABLET PO (08:50)
[2023-10-20] MEDS: levETIRAcetam Tablet 250 MG, levETIRAcetam Tablet 500 MG 750 MG PO ×2 (08:50→21:54)
[2023-10-20] MEDS: ACETAMINOPHEN 325 MG TABLET 650 MG PO ×2 (08:50→14:21)
--- NOTE | 2023-10-20 18:11 | P.PNIM_ITS ---
Progress Note: A&P Assessment and Plan (1) Seizure: Code(s): R56.9 - Unspecified convulsions Status: Acute Assessment and Plan: 10/20/2023: -continue plan above -continue Keppra - EEG pending -Neurology is following -total CK > 16,000 no need to trend any further as it will remain elevated up to 10 days (2) Confusion: Code(s): R41.0 - Disorientation, unspecified Status: Acute Assessment and Plan: 10/18/23: * Head CT showed stable extensive nonspecific cerebral white matter disease likely representing chronic small-vessel ischemic disease * C-spine CT was negative for fracture, showed moderate cervical spondylosis * Urine drug screen and ETOH negative * UA suggestive of UTI * Continue neuro checks q.4 hour * Neurology following 10/19/23: * Urine culture negative * Neurology following * Continue neuro checks 10/20/2023: - Resolved pt a/o 3 -continue neuro checks q 8 hrs (3) Urinary tract infection: Qualifiers: Hematuria presence: without hematuria Urinary tract infection type: acute cystitis Qualified Code(s): N30.00 - Acute cystitis without hematuria Code(s): N39.0 - Urinary tract infection, site not specified Status: Acute Assessment and Plan: 10/18/23: * UA showed 1+ urine protein, trace ketones, 2+ leukocytes, 51-100 urine WBC, 4+ bacteria * Urine culture was obtained and is pending * Patient was given a dose of Levaquin and then switched to Rocephin 10/19/23: * Urine culture negative * Rocephin discontinued 10/20/2023: Resolved Urine cultures are negative (4) Diarrhea: Qualifiers: Diarrhea type: unspecified type Qualified Code(s): R19.7 - Diarrhea, unspecified Code(s): R19.7 - Diarrhea, unspecified Status: Acute Assessment and Plan: 10/18/23: * Patient reporting diarrhea * CT of the abdomen pelvis with contrast was negative * Continue with IV fluids * Monitor electrolytes * C diff and stool cultures ordered 10/19/23: * C diff negative * Stool cultures pending * Continue IVF 10/20/2023: Continue plan above (5) Abdominal pain: Qualifiers: Abdominal location: periumbilical Qualified Code(s): R10.33 - Periumbilical pain Code(s): R10.9 - Unspecified abdominal pain Status: Acute Assessment and Plan: 10/18/23: * Lipase 90 * CT the abdomen pelvis was negative * Likely related to diarrhea 10/19/23: * No change 10/20/2023: resolved Pt denies any abdominal pain today (6) HTN (hypertension): Qualifiers: Hypertension type: primary hypertension Qualified Code(s): I10 - Essential (primary) hypertension Code(s): I10 - Essential (primary) hypertension Status: Chronic Assessment and Plan: 10/18/23: * Blood pressure ranging 137/80 to 152/77 * Amlodipine ordered 10/19/23: * No change to current treatment plan 10/20/2023: -continue amlodipine p.o. daily -monitor vitals q.4 hours Plan Continue home medications: VTE Prophylaxis: DIET: Anticipated hospital stay: > 2 days Code Status: Full code Time Spent With Patient Time with patient: 25 - 35 minutes Subjective Date/time seen: 10/20/23 18:11 Interval history: 67-year-old male with a PMHx: Of seizures, alcohol Fluzone, right AKA, GERD and HTN, patient presented to hospital via EMS from a
--- NOTE | 2023-10-20 18:11 | PM.IMPN ---
Progress Note: A&P Assessment and Plan (1) Seizure: Code(s): R56.9 - Unspecified convulsions Status: Acute Assessment and Plan: 10/20/2023: -continue plan above -continue Keppra - EEG pending -Neurology is following -total CK > 16,000 no need to trend any further as it will remain elevated up to 10 days (2) Confusion: Code(s): R41.0 - Disorientation, unspecified Status: Acute Assessment and Plan: 10/18/23: Head CT showed stable extensive nonspecific cerebral white matter disease likely representing chronic small-vessel ischemic disease C-spine CT was negative for fracture, showed moderate cervical spondylosis Urine drug screen and ETOH negative UA suggestive of UTI Continue neuro checks q.4 hour Neurology following 10/19/23: Urine culture negative Neurology following Continue neuro checks 10/20/2023: - Resolved pt a/o 3 -continue neuro checks q 8 hrs (3) Urinary tract infection: Qualifiers: Hematuria presence: without hematuria Urinary tract infection type: acute cystitis Qualified Code(s): N30.00 - Acute cystitis without hematuria Code(s): N39.0 - Urinary tract infection, site not specified Status: Acute Assessment and Plan: 10/18/23: UA showed 1+ urine protein, trace ketones, 2+ leukocytes, 51-100 urine WBC, 4+ bacteria Urine culture was obtained and is pending Patient was given a dose of Levaquin and then switched to Rocephin 10/19/23: Urine culture negative Rocephin discontinued 10/20/2023: Resolved Urine cultures are negative (4) Diarrhea: Qualifiers: Diarrhea type: unspecified type Qualified Code(s): R19.7 - Diarrhea, unspecified Code(s): R19.7 - Diarrhea, unspecified Status: Acute Assessment and Plan: 10/18/23: Patient reporting diarrhea CT of the abdomen pelvis with contrast was negative Continue with IV fluids Monitor electrolytes C diff and stool cultures ordered 10/19/23: C diff negative Stool cultures pending Continue IVF 10/20/2023: Continue plan above (5) Abdominal pain: Qualifiers: Abdominal location: periumbilical Qualified Code(s): R10.33 - Periumbilical pain Code(s): R10.9 - Unspecified abdominal pain Status: Acute Assessment and Plan: 10/18/23: Lipase 90 CT the abdomen pelvis was negative Likely related to diarrhea 10/19/23: No change 10/20/2023: resolved Pt denies any abdominal pain today (6) HTN (hypertension): Qualifiers: Hypertension type: primary hypertension Qualified Code(s): I10 - Essential (primary) hypertension Code(s): I10 - Essential (primary) hypertension Status: Chronic Assessment and Plan: 10/18/23: Blood pressure ranging 137/80 to 152/77 Amlodipine ordered 10/19/23: No change to current treatment plan 10/20/2023: -continue amlodipine p.o. daily -monitor vitals q.4 hours Plan Continue home medications: VTE Prophylaxis: DIET: Anticipated hospital stay: > 2 days Code Status: Full code Time Spent With Patient Time with patient: 25 - 35 minutes Subjective Date/time seen: 10/20/23 18:11 Interval history: 67-year-old male with a PMHx: Of seizures, alcohol Fluzone, right AKA, GERD and HTN, patient presented to hospital via EMS from a parking lot near the patient's apartment. Patient was found sitting in the parking lot awake but nonverbal. Arrived to the emergency department A&Ox2. He reports no recollection of being found in the parking lot. Patient does not remember a lot from day prior, but remembers he experienced abdominal pain, headache, and urinary incontinence yesterday. Unable to recall further events. States that when he needs to go places, typically someone comes to get him and drives him there. Arrived complaining of abdominal pain which he describes as periumbilical, nonradiating, constant, no aggravating or
[2023-10-21] VITALS: PULSE 61
[2023-10-21 02:00] LABS: Glucose Point of Care 118 mg/dl (65-105)
[2023-10-21 06:00] VITALS: BP 132/74; PULSE 58; RESP 18; TEMP 36.7; O2SAT 100
[2023-10-21 06:36] LABS: Basophils Absolute Auto 0.1 K/mm3 (0.0-0.1); Basophils Percent Auto 0.7 % (0.2-1.2); Eosinophils Absolute Auto 0.2 K/mm3 (0-0.3); Eosinophils Percent Auto 2.6 % (0-4.4); Hematocrit 36.6 % (42.0-52.0); Hemoglobin 12.1 g/dL (14.0-18.0); Immature Granulocyte Absolute 0.04 K/mm3 (0.00-0.031); Immature Granulocyte Percent A 0.6 % (0-0.5); Lymphocytes Absolute Auto 1.51 K/mm3 (0.9-3.2); Lymphocytes Percent Auto 20.8 % (18.3-44.2); Mean Corpuscular HGB Conc 33.1 g/dl (32-36); Mean Corpuscular Hemoglobin 30.8 pg (26-34); Mean Corpuscular Volume 93.1 fl (80-100); Mean Platelet Volume 11.1 fl (7.4-10.4); Monocytes Absolute Auto 0.9 K/mm3 (0.1-0.6); Monocytes Percent Auto 12.7 % (2.6-8.5); Neutrophils Absolute Auto 4.5 K/mm3 (1.3-6.7); Neutrophils Percent Auto 62.6 % (45.5-73.1); Platelet Count Result 152 k/mm3 (150-375); Red Blood Count 3.93 M/mm3 (4.6-6.20); Red Cell Distribution Width 12.9 % (11.5-14.5); White Blood Count 7.3 K/mm3 (4.5-10.0)
[2023-10-21 06:56] LABS: Alanine Aminotransferase 56 U/L (6-50); Alkaline Phosphatase 49 U/L (38-126); Anion Gap 11 mmol/L (4-12); Aspartate Amino Transferase 111 U/L (17-59); Bilirubin,Total 0.7 mg/dL (0.2-1.3); Blood Urea Nitrogen 12 mg/dL (9-20); Calcium 8.6 mg/dL (8.4-10.2); Carbon Dioxide 26 mmol/L (22-30); Chloride 99 mmol/L (98-107); Estimated CRCL calculation 69 ml/min; Estimated Glomerular Filt Rate > 60; Glucose 102 mg/dL (65-110); Potassium 3.2 mmol/L (3.4-5.0); Sodium 136 mmol/L (137-145)
[2023-10-21 08:00] VITALS: PULSE 55
[2023-10-21] MEDS: levETIRAcetam Tablet 250 MG, levETIRAcetam Tablet 500 MG 750 MG PO (08:22)
[2023-10-21] MEDS: THIAMINE HCL 200 MG/2 ML VIAL 100 MG IV PUSH (08:22)
[2023-10-21] MEDS: amLODIPine BESYLATE 5 MG TABLET PO (08:23)
[2023-10-21] MEDS: ACETAMINOPHEN 325 MG TABLET 650 MG PO (08:23)
[2023-10-21 10:11] LABS: Creatine Kinase 6806 U/L (55-170)
--- NOTE | 2023-10-21 11:42 | PM.DS ---
DS: Admitting Diagnosis Discharge Date 10/21/23 Admitting Diagnosis Confusion UTI Elevated CK seizure diarrhea abdominal pain hypertension DS: Discharge Diagnosis Discharge Diagnosis (1) Seizure: Code(s): R56.9 - Unspecified convulsions Status: Acute (2) Confusion: Code(s): R41.0 - Disorientation, unspecified Status: Acute (3) Urinary tract infection: Qualifiers: Hematuria presence: without hematuria Urinary tract infection type: acute cystitis Qualified Code(s): N30.00 - Acute cystitis without hematuria Code(s): N39.0 - Urinary tract infection, site not specified Status: Acute (4) Diarrhea: Qualifiers: Diarrhea type: unspecified type Qualified Code(s): R19.7 - Diarrhea, unspecified Code(s): R19.7 - Diarrhea, unspecified Status: Acute (5) Abdominal pain: Qualifiers: Abdominal location: periumbilical Qualified Code(s): R10.33 - Periumbilical pain Code(s): R10.9 - Unspecified abdominal pain Status: Acute (6) HTN (hypertension): Qualifiers: Hypertension type: primary hypertension Qualified Code(s): I10 - Essential (primary) hypertension Code(s): I10 - Essential (primary) hypertension Status: Chronic DS: Summary Hospital Course Reason for hospitalization: Confusion UTI Elevated CK seizure diarrhea abdominal pain hypertension Hospital Course: This is a 67-year-old male presented to the hospital on 10/17/2023 with altered mental status and abdominal pain. Workup in the hospital included a chest x-ray which was negative. Cervical spine CT which was negative for fracture, showed moderate cervical spondylosis. Abdomen/pelvis CT was negative. Head CT showed stable extensive nonspecific cerebral white matter disease representing chronic small vessel ischemic disease. Carotid Dopplers are negative. Initial labs showed a white blood cell count of 10.3, hemoglobin 13.1, bicarb 21, anion gap 15, lactic acid 2.4> 1.9, total bili 1.4, AST 74, total CK of 5864. UA was obtained and showed 1+ urine protein, trace ketone, 2+ leukocytes, 51-100 urine WBC, 4+ bacteria. The urine drug screen and alcohol was negative. Urine culture was obtained and is pending. Patient was given a dose of Keppra, Levaquin, and some Ativan while in the ED. 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 Patient worked with therapy and can ambulate in the halls with crutches 320 ft with standby assist. Labs reviewed in her essentially unremarkable. Total CK down to 6806. UA was ruled out as urine culture was negative. Patient is stable for discharge at this time. He will need to follow up with his primary care physician in 1 week and Neurology in 2 weeks. He will be given a script for Keppra and amlodipine. Final diagnosis: Altered mental status, Seizure Status at Discharge Cognitive/behavioral status at discharge: Alert and oriented x3 Functional status at discharge: independent ambulation Overall status at discharge: patient is progressing back to baseline Time Spent with Patient Time attestation: Total time spent providing and/or coordinating discharge services: Time spent: Greater than 30 minutes Exam Narrative: General: In no acute distress, well nourished Cardiac: Normal S1 and S2. RRR, No murmur, gallops or friction rubs, peripheral pulses intact. Respiratory: Lungs clear to auscultation, no adventitious lung sounds, currently on room air Gastrointestinal: soft, non-distended, non-tender, normoactive bowel sounds. : voiding without difficulty. Extremities: Above knee amputation right lower extremity, no edema Neuro: Alert and oriented x4 DS: Data Data Completed and Pending Completed studies during hospitalization: Carotid Doppler study Chest x-ray Cervical spine CT Abdomen/pelvis CT Head CT Pending studies at discharge: None Labs on day of discharge: Labs fr
[2023-10-21 12:00] VITALS: PULSE 81
[2023-10-22 10:23] LABS: Vitamin B1 <6 nmol/L (8-30)
--- NOTE | 2023-10-22 12:04 | P.NEURO_ITS ---
Neurology EEG Report General Information Date of Study: 10/19/23 TEST Electroencephalogram DIAGNOSIS History of alcohol abuse and seizures CONDITION OF RECORDING Bedside recording EEG NUMBER [id number] CLINICAL HISTORY The patient was found sitting in the parking lot confused prior to this admis yovana. This also prior history of alcohol-related seizures per EEG DESCRIPTION During wakefulness the background activity consists of posterior dominant alpha rhythm at approximately 9 hertz with an amplitude of 15-30 microvolts which appears mildly formed. Anteriorly, low amplitude mixed frequency activity was seen. There is a mild anteroposterior he. Muscle tension artifacts appeared intermittently. Hyperventilation or photic stimulation were not performed. Patient did not progress to stage 2 sleep. However during drowsiness attenuation background activity was seen. IMPRESSION The normal EEG obtained during awake state.
[2023-10-22 12:44] LABS: Methylmalonic Acid 173 nmol/L (69-390)
== END 2023-10-21 13:25 | disposition home or self-care (01) | DRG 101 ==
LOC: ANHED 10:30 → ANH3MEDSUR 10:40
PROVIDERS: Nurse Practitioner; Psychiatry & Neurology Neurology; Student in an Organized Health Care Education/Training Program; Admitting Provider Internal Medicine; Emergency Provider Emergency Medicine; Visit Provider Nurse Practitioner Acute Care
DX: R56.9 Unspecified convulsions (principal); M62.82 Rhabdomyolysis; I10 Essential (primary) hypertension; K21.9 Gastro-esophageal reflux disease without esophagitis; R41.0 Disorientation, unspecified; R19.7 Diarrhea, unspecified; M47.812 Spondylosis without myelopathy or radiculopathy, cervical region; G54.6 Phantom limb syndrome with pain; H54.40 Blindness, one eye, unspecified eye; F10.10 Alcohol abuse, uncomplicated; Z89.611 Acquired absence of right leg above knee
CPT/HCPCS: 36415; 70450; 71045; 72125; 74177; 80053; 80061; 80307; 81001; 82306; 82550; 82607; 82746; 82948; 83605; 83690; 83921; 84425; 85025; 85055; 87045; 87086; 87088; 87427; 87449; 87493; 93306; 93880; 95816; 96361; 96375; 97161; 97165; 99285; A9270; J0696; J1953; J2060; J3411; J7030; Q9967